=== PATIENT | female | born 1955 | race Caucasian/White ===

== ENCOUNTER → 2017-01-26 | Outpatient (CLI) | payer OTHER ==
[~2017-01-26] MED LIST: ATOR-24 PO; CITA40TA12 PO; CITA40TA4 PO; HYZ/10015 PO; LUTE15CA PO; MULT-1092 PO; NOTE; TYLER650 PO
[2017-01-26 13:13] LABS: ALT/SGPT 29 U/L (12-78); AST/SGOT 18 U/L (15-37); BLOOD UREA NITROGEN 22 mg/dl (7-18); BUN/CREATININE RATIO 20.4 (10-20); CALCIUM 9.2 mg/dl (8.5-10.1); CARBON DIOXIDE 23 mmol/L (21-32); CHLORIDE 110 mmol/L (98-107); GLUCOSE 84 mg/dl (70-99); POTASSIUM 4.3 mmol/L (3.5-5.1); SODIUM 142 mmol/L (136-145)
[2017-01-26 13:17] LABS: ALKALINE PHOSPHATASE 72 U/L (45-117); CHOLESTEROL 252 mg/dl (0-200); CHOLESTEROL/HDL RATIO 3.6; HDL CHOLESTEROL 70 mg/dl; LDL CHOLESTEROL CALCULATED 130 mg/dl; TRIGLYCERIDES 261 mg/dl (0-150); VERY LOW DENSITY LIPOPROT CALC 52 mg/dl
[2017-01-26 13:40] LABS: ESTIMATED AVERAGE GLUCOSE 105 mg/dl; HA1C FLAG Normal (Normal)
[2017-01-29 06:37] LABS: HEPATITIS C RNA TMA QUAL Not detected
== END | disposition home or self-care (01) ==
LOC: C.LABPBG 10:14
PROVIDERS: ATTEND Physician Assistant
DX: Z11.59 Encounter for screening for other viral diseases (principal); I10 Essential (primary) hypertension; E78.5 Hyperlipidemia, unspecified; Z13.1 Encounter for screening for diabetes mellitus

== ENCOUNTER → 2017-09-20 | Day surgery (SDC) | payer OTHER ==
[2017-09-07 11:44] VITALS: Ht 160 cm; Wt 55.0 kg
[~2017-09-20] VITALS: Ht 160 cm; Wt 55.0 kg
[~2017-09-20] MED LIST changes: -CITA40TA12 PO; +LIDOCAINE HCL 2% 2 ML VIAL (20MG/ML) ONE; +MIDAZOLAM HCL 1 MG/ML 2ML VIAL ONE; -NOTE; +ONDANSETRON INJ 2 MG/ML 2 ML VIAL ONE; +PROPOFOL IV EMULSION 10 MG/ML 20 ML VIAL IV ONE
--- NOTE | 2017-09-20 11:35 | Endo History and Physical ---
History & Physical Date of Service: Sep 20, 2017. Chief Complaint: Screening Referring Physician: JJ Rey History of Present Illness 62 yo CF who presents for screening colonoscopy. Past Surgical History Hx Cardiac Surgery: No Hx Internal Defibrillator: No Hx Pacemaker: No Hx Abdominal Surgery: Yes (, KARYN, RT/LEFT OOPHERECTOMY) Hx of Implantable Prosthesis: No Hx Post-Op Nausea and Vomiting: No Hx Cancer Surgery: No Hx Thoracic Surgery: No Hx Orthopedic: No Hx Urinary Tract Surgery: No Family History None Social History Smoking Status: Current Every Day Smoker Hx Substance Use: No Hx Alcohol Use: Yes (RARELY) Allergies Coded Allergies: No Known Allergies (Verified , 09/20/17) Current Medications Reported Home Medications Medications Dose Route/Sig Max Daily Dose Days Date Category Tylenol Arthitis Ext Rel (Acetaminophen) 650 Mg Ertab 2 Tab PO BID 09/07/17 Reported Lutein (Lutein-Zeaxanthin) 1 Cap Cap 1 Cap PO QAM 09/07/17 Reported Centrum Silver 50+Women (Multiple Vitamins W/ Minerals) 1 Tab Tab 1 Tab PO QAM 09/07/17 Reported Lipitor (Atorvastatin Calcium) 40 Mg Tab 40 Mg PO HS 09/07/17 Reported Citalopram Hydrobromide (Citalopram) 40 Mg Tab 1 Tab PO QAM 09/07/17 Reported Hyzaar 25MG/100MG (HCTZ/Losartan Potassium) Tab 1 Tab PO QAM 09/07/17 Reported Vital Signs Weight (Kilograms): 55 Height (Feet): 5 Height (Inches): 3 Date Time Temp Pulse Resp B/P (MAP) Pulse Ox O2 Delivery O2 Flow Rate FiO2 09/20/17 11:23 36.9 97 20 131/58 (82) 94 Room Air Physical Exam General Appearance: WD/WN, no apparent distress Respiratory/Chest: Auscultation: breath sounds normal Cardiovascular: Heart Auscultation: RRR Abdomen: Bowel Sounds: normal Inspection & Palpation: soft, non-distended, no tenderness, guarding & rebound Assessment and Plan Assessment: 62 yo CF who presents for screening colonoscopy. Plan: Proceed with colonoscopy.
--- NOTE | 2017-09-20 12:25 | Discharge Instructions ---
Endoscopy Patient Instructions Date / Procedure(s) Performed Sep 20, 2017. Colonoscopy Allergy Information Coded Allergies: No Known Allergies (Verified , 09/20/17) Discharge Date / Findings Sep 20, 2017. Diverticulosis Internal hemorrhoids Medication Instructions OK to resume all medications today as prescribed Reported Home Medications Medications Dose Route/Sig Max Daily Dose Days Date Category Tylenol Arthitis Ext Rel (Acetaminophen) 650 Mg Ertab 2 Tab PO BID 09/07/17 Reported Lutein (Lutein-Zeaxanthin) 1 Cap Cap 1 Cap PO QAM 09/07/17 Reported Centrum Silver 50+Women (Multiple Vitamins W/ Minerals) 1 Tab Tab 1 Tab PO QAM 09/07/17 Reported Lipitor (Atorvastatin Calcium) 40 Mg Tab 40 Mg PO HS 09/07/17 Reported Citalopram Hydrobromide (Citalopram) 40 Mg Tab 1 Tab PO QAM 09/07/17 Reported Hyzaar 25MG/100MG (HCTZ/Losartan Potassium) Tab 1 Tab PO QAM 09/07/17 Reported Provider Instructions Activity Restrictions - No exercising or heavy lifting for 24 hours. - Do not drink alcohol the day of the procedure. - Do not drive a car or operate machinery until the day after the procedure. - Do not make any important decisions or sign important papers in 24 hours after the procedure. Following Day: - Return to full activity which may include returning to work/school. Diet Start your diet with liquids and light foods (jello, soup, juice, toast). Then eat your usual diet if not nauseated. Treatment For Common After Affects For mild abdominal pain, bloating, or excessive gas: - Rest - Eat lightly - Lie on right side Follow-Up Information Follow-up with JJ Rey as scheduled Anesthesia Information What You Should Know You have had a procedure that required some medicine to reduce anxiety and discomfort. This treatment is called moderate sedation. After receiving the treatment, you may be sleepy, but you will be able to breathe on your own. The effects of the treatment may last for several hours. Follow these instructions along with Activity/Diet recommendations noted above: * Do NOT do anything where dizziness or clumsiness would be dangerous. * Rest quietly at home today, then you can be up and about tomorrow. * Have a responsible person stay with you the rest of today. * You may have had an I.V. today. If so, you may take the dressing off later today. Recommendations Call your doctor if: * Trouble breathing * Continuous vomiting for more than 24 hours * Temperature above 101 degrees * Severe abdominal pain or bloating * Pain not relieved by pain medicine ordered * There is increased drainage or redness from any incision * A large amount of rectal bleeding greater than 2-3 tablespoons. (If you had a polyp/s removed or have hemorrhoids, a small amount of blood - from the rectum is to be expected.) * You have any unanswered questions or concerns. IN THE EVENT OF A SERIOUS EMERGENCY, GO TO THE NEAREST EMERGENCY ROOM Your discharge instructions were prepared by provider Corona Barney. Patient Instructions Signature Page January Doris Patient (or Guardian) Signature/Date: I have read and understand the instructions given to me by my caregivers. Caregiver/RN/Doctor Signature/Date: The above-named patient and/or guardian has received patient instructions on this date. + Original Patient Signature Page (only) stays with chart. Please make copy for patient.
--- NOTE | 2017-09-20 12:28 | GI REPORT ---
Procedure Date: 09/20/2017 11:40 AM Procedure: Colonoscopy Indications: Screening for colorectal malignant neoplasm Medicines: Monitored Anesthesia Care Complications: No immediate complications. Estimated Blood Loss: Estimated blood loss: none. Procedure: Pre-Anesthesia Assessment: - Prior to the procedure, a History and Physical was performed, and patient medications and allergies were reviewed. The patient's tolerance of previous anesthesia was also reviewed. The risks and benefits of the procedure and the sedation options and risks were discussed with the patient. All questions were answered, and informed consent was obtained. Prior Anticoagulants: The patient has taken no previous anticoagulant or antiplatelet agents. ASA Grade Assessment: II - A patient with mild systemic disease. After reviewing the risks and benefits, the patient was deemed in satisfactory condition to undergo the procedure. After I obtained informed consent, the scope was passed under direct vision. Throughout the procedure, the patient's blood pressure, pulse, and oxygen saturations were monitored continuously. The scope was introduced through the anus and advanced to the terminal ileum. The colonoscopy was performed without difficulty. The patient tolerated the procedure well. The quality of the bowel preparation was good. The terminal ileum, ileocecal valve, appendiceal orifice, and rectum were photographed. Findings: The perianal and digital rectal examinations were normal. Multiple small-mouthed diverticula were found in the sigmoid colon. Non-bleeding internal hemorrhoids were found during retroflexion. The hemorrhoids were small. Impression: - Diverticulosis in the sigmoid colon. - Non-bleeding internal hemorrhoids. - No specimens collected. Recommendation: - Resume previous diet. - Continue present medications. - Repeat colonoscopy in 10 years for surveillance. - Return to primary care physician as previously scheduled. Corona Barney DO 09/20/2017 12:28:19 PM This report has been signed electronically. Note Initiated On: 09/20/2017 11:40 AM I attest to the content of the Intraoperative Record and orders documented therein, exceptions below
[2017-09-20 13:01] VITALS: BP 123/68; PULSE 80; O2SAT 100
--- NOTE | 2017-09-20 13:40 | Anesthesiology Progress Note ---
Anesthesia Post Op Note Date & Time Sep 20, 2017 at 13:39 Vital Signs Pain Intensity: 0 Vital Signs Past 12 Hours Date Time Temp Pulse Resp B/P (MAP) Pulse Ox O2 Delivery O2 Flow Rate FiO2 09/20/17 13:01 80 20 123/68 (86) 100 Room Air 09/20/17 12:44 81 20 150/88 (108) 94 Room Air 09/20/17 12:29 84 20 123/74 (90) 94 Room Air 09/20/17 11:23 36.9 97 20 131/58 (82) 94 Room Air Notes Mental Status: alert / awake / arousable, participated in evaluation Pt Amnestic to Procedure: Yes Nausea / Vomiting: adequately controlled Pain: adequately controlled Airway Patency, RR, SpO2: stable & adequate BP & HR: stable & adequate Hydration State: stable & adequate Anesthetic Complications: no major complications apparent
== END | disposition home or self-care (01) ==
LOC: C.GI 10:41
PROVIDERS: ATTEND Internal Medicine
DX: Z12.11 Encounter for screening for malignant neoplasm of colon (principal); I10 Essential (primary) hypertension; K57.30 Diverticulosis of large intestine without perforation or abscess without bleeding; K64.8 Other hemorrhoids; Z90.722 Acquired absence of ovaries, bilateral; F17.200 Nicotine dependence, unspecified, uncomplicated; Z79.899 Other long term (current) drug therapy

== ENCOUNTER 2022-07-17 15:12 | Inpatient (IN) ==
[2022-07-17] MEDS ORDERED: SODIUM CHLORIDE 0.9% 250 ML IV PRN (17:55)
[2022-07-17] MEDS ORDERED: PANTOprazole 40 MG in SYRINGE 0 ML IV ONE (17:55)
[2022-07-17] MEDS ORDERED: FAMOTIDINE 20 MG in SYRINGE 3 ML IV ONE (17:55)
--- NOTE | 2022-07-17 18:00 | Emergency Department Note ---
Impression & Plan UGIB (upper gastrointestinal bleed), RONNI (acute kidney injury), Anemia, SOLORIO (dyspnea on exertion) ED Provider Note NAME: JOSE ALBERTO COFFMAN AGE: 67 SEX: F : 1955 ARRIVES VIA: Walk-In INFORMANT: Patient, ED PROVIDER(S): Ameya Prescott DO CHIEF COMPLAINT: Weakness HPI: The patient is a 67-year-old female who presented to the emergency department for an evaluation of generalized weakness. The patient's been noticing generalized weakness and shortness of breath with exertion for at least the last few weeks. The patient states that she notices no black or bloody bowel moods. She has noticed some diffuse abdominal tenderness. She denies having any fever. She is had no recent trauma. Patient states that she was seen by her family doctor for the symptoms yesterday. At that time she had some laboratory studies drawn. She was called today and told to go to the emergency department because her labs were abnormal. She is not sure exactly what was abnormal with her labs. The patient has not had a transfusion of blood but thinks that her hemoglobin was reportedly low. The patient was told to come the emergency department for blood transfusion. She denies having any swelling in the legs. ROS: See above HPI for pertinent positives & negatives. A total of 10 systems re viewed and were otherwise negative. PAST MEDICAL HISTORY: See Below PAST SURGICAL HISTORY: See Below FAMILY HISTORY: See Below SOCIAL HISTORY: See Below HOME MEDICATIONS: See Below ALLERGIES: See Below VITALS: See Below PHYSICAL EXAMINATION: GENERAL: Patient is awake alert in no acute distress patient is resting comfortably and showing no signs of anxiety EYES: The conjunctivae are pale. The pupils are round and reactive. EARS, NOSE, MOUTH AND THROAT: The nose is without any evidence of any deformity. Mucous membranes are moist. Tongue is midline. NECK: The neck is nontender and supple. RESPIRATORY: Normal respiratory effort is noted there is no evidence of wheezing rhonchi or rales CARDIOVASCULAR: Regular rate and rhythm noted there no murmurs rubs or gallops normal S1 normal S2. GASTROINTESTINAL: Soft and nondistended. There is no tenderness guarding or rigidity. Rectal exam revealed brown stool which was heme positive. MUSCULOSKELETAL/EXTREMITIES: There is no evidence of gross deformity full range of motion is noted in the hips and shoulders. SKIN: There is no obvious evidence of any rash. There are no petechiae, pallor or cyanosis noted. NEUROLOGIC: Patient is awake alert and oriented x3. Gait was steady. MEDICAL DECISION MAKING: The patient is a 67-year-old female who presented to the emergency department for an evaluation of weakness. The patient was seen by her primary care physician and had outpatient laboratory studies obtained. The outpatient laboratory studies appear to be consistent with anemia. The patient was found t o have heme positive stool from below. It was brown stool so I am unsure if this is the cause completely the patient's anemia. She was treated with IV fluids and blood consent was obtained. Blood transfusion was ordered. I discussed the patient's condition with the on-call [facility]. They have agreed to evaluate the patient in the emergency department for further management and disposition. Triage Nursing notes reviewed. Prior medical records reviewed Vital Signs: reviewed and remarkable for elevated blood pressure. Differential diagnosis: Infection, dehydration, metabolic abnormality, hypo/hyperglycemia, electrolyte disturbance, anemia, hypoxia, cardiac sources, intracerebral event, toxicologic, neurologic, as well as other pathologies. ER treatment provided: See below Diagnostics interpreted by me: ECG: Obtained in the emergency department. My interpretation is normal sinus rhythm at 84 bpm. There is no ectopy. There is no acute ST segment abnormalities noted. Cardiac Monitoring: An order was placed for continuous cardiac monitoring. The monitor shows a rate of 85 bpm with sinus rhythm. Laboratory studies: As stated above and show below. Imaging studies: See below Consultation(s): I discussed this case with Dr. Coy who is on-call for the [facility] group. ED COURSE: Procedures: none Critical Care: I have personally spent greater than 55 minutes of critical care time in the direct management of this patient. This includes bedside care, interpretation of diagnostic studies, and testing, discussion with consultants, patient, and family members, and other required patient management activities. This 55 minutes is in excess of all separately billable procedures. Past Med/Surg History Medical History (Updated 07/17/22 @ 19:35 by Katelin Morris PA-C) Acid reflux Acute kidney injury Alcohol use disorder Depression with anxiety Diverticulosis Dyslipidemia Hypertension Internal hemorrhoids Surgical History H/O hysterectomy with oophorectomy S/P ORIF (open reduction internal fixation) fracture R wrist Family History Father Diabetes Myocardial infarction Sister Diabetes Grandmother Breast cancer Grandfather Myocardial infarction Mother Lung cancer Denies family history of Ovarian cancer Prostate cancer Colorectal cancer Social History Smoking Status: Current every day smoker Tobacco Type: Cigarettes packs per day: 0.5; Years Smoked: 15; Second Hand Exposure: Yes (SPOUSE); Hx Alcohol Use: Yes Alcohol type: other Alcohol type Comment: vodka Alcohol Intake Frequency: 4 or More x per/Week Alcohol Intake Frequency Comment: 4-5 drinks Hx Substance Use: No Preferred Language: Cypriot Communication Ability: Effective Visual Impairment: No Limitations Hearing Ability: Normal Redevelopment Specialist Required: No Beliefs That Will Affect Care: None marital status: Current Living Situation: Spouse current occupational status: retired Feels Safe at Home: Yes Childhood Exposure to Second-Hand Smoke: Yes Diet Comment: regular caffeine: Yes (1 red bull daily) during the past year weight has: remained stable Dental Care, Regularly: No Physical Activity Frequency: 1-2 Times per Week Physical Activity Frequency Comment: walking Seatbelt Use: always Sunscreen Use: No Allergies Allergies Allergy/AdvReac Type Severity Reaction Status Date / Time No Known Drug Allergies Allergy Verified 07/17/22 08:04 Home Meds Home Medications Medication Instructions Recorded Confirmed diphenhydramine HCl 25 mg capsule 25 mg PO DAILY PRN allergy symptoms 07/19/19 07/17/22 famotidine 20 mg tablet 20 mg PO DAILY PRN Acid Reflux 07/19/19 07/17/22 lutein 25 mg-zeaxanthin 5 mg 1 cap PO DAILY 07/19/19 07/17/22 capsule erzduxjtxche-utsozmyn-ptmjol tablet 1 tab PO DAILY 07/19/19 07/17/22 nicotine (polacrilex) 4 mg gum 4 mg buccal Q8H PRN Nicotine 07/17/22 07/17/22 (Nicorette) Cravings Previous Rx's Medication Instructions Recorded venlafaxine 75 mg capsule,extended 75 mg PO DAILY #90 caps 09/10/21 release 24 hr valsartan 320 1 tab PO DAILY #90 tabs 02/17/22 mg-hydrochlorothiazide 25 mg tablet atorvastatin 40 mg tablet 40 mg PO DAILY #90 tabs 05/18/22 metoprolol succinate 50 mg 50 mg PO DAILY #90 tabs 06/01/22 tablet,extended release 24 hr albuterol sulfate 90 mcg/actuation 1 inh inhalation QID PRN shortness 07/17/22 aerosol inhaler of breath or wheezing #8.5 grams fluticasone furoate 200 1 inh inhalation DAILY #60 ea 07/17/22 mcg-vilanterol 25 mcg/dose inhalation powder (Breo Ellipta) nicotine See Rx Instructions transdermal 07/17/22 21mg/24hr-14mg/24hr-7mg/24hr daily .COMPLEX #56 patches transderm patches,sequentl Results & Data (ED) Vital Signs Vital Signs - 24 hr 07/17/22 15:26 07/17/22 19:34 07/17/22 19:45 Temperature 36.9 C 36.6 C 36.7 C Temperature Source Temporal Artery Scan Oral Oral Pulse Rate 83 90 91 H Pulse Rate [Apical] Pulse Rhythm Regular Pulse Strength Normal Respiratory Rate 20 17 17 Respiratory Effort / Characteristics Non-Labored Respiratory Depth Normal Respiratory Pattern Blood Pressure 138/57 L 167/71 H 173/85 H Blood Pressure [Left Arm] Blood Pressure Mean 84 103 114 Blood Pressure Mean [Left Arm] Blood Pressure Position Sitting Pulse Oximetry 95 98 Oxygen Delivery Method Room Air Sepsis Recent Fever Within 48 Hours No Sepsis New/Unexplained Change in Mental Status N/A Sepsis Action Taken by Nursing No Action Required 07/17/22 19:52 07/17/22 20:07 07/17/22 20:37 Temperature 36.8 C Temperature Source Oral Pulse Rate 88 88 85 Pulse Rate [Apical] Pulse Rhythm Regular Pulse Strength Normal Respiratory Rate 17 19 22 Respiratory Effort / Characteristics Respiratory Depth Respiratory Pattern Blood Pressure 118/89 170/92 H 167/87 H Blood Pressure [Left Arm] Blood Pressure Mean 98 118 113 Blood Pressure Mean [Left Arm] Blood Pressure Position Sitting Pulse Oximetry 95 96 98 Oxygen Delivery Method Sepsis Recent Fever Within 48 Hours Sepsis New/Unexplained Change in Mental Status Sepsis Action Taken by Nursing 07/17/22 20:39 07/17/22 21:37 Temperature Temperature Source Pulse Rate 85 Pulse Rate [Apical] 87 Pulse Rhythm Pulse Strength Respiratory Rate 20 Respiratory Effort / Characteristics Non-Labored Spontaneous Respiratory Depth Respiratory Pattern Regular Blood Pressure 175/78 H Blood Pressure [Left Arm] 112/65 Blood Pressure Mean 110 Blood Pressure Mean [Left Arm] 80 Blood Pressure Position Lying Pulse Oximetry 93 99 Oxygen Delivery Method Room Air Sepsis Recent Fever Within 48 Hours Sepsis New/Unexplained Change in Mental Status Sepsis Action Taken by [facility] Medications Current Medication List: was personally reviewed by me Laboratory Data Attestation: I reviewed the patient's lab results. Result diagrams: 07/17/22 17:24 07/17/22 17:24 Lab Results 07/17/22 07/17/22 07/17/22 Range/Units 17:24 17:24 17:24 WBC 9.08 (4.8-10.8) K/ul RBC 2.21 L (3.93-5.22) M/uL Hgb 5.8 L* (12.0-16.0) g/dl Hct 19.9 L* (34.1-44.9) % MCV 90.0 (80.0-100.0) fL MCH 26.2 (25.0-34.0) pg MCHC 29.1 L (32.0-36.0) g/dL RDW Std Deviation 52.8 H (36.4-46.3) fL RDW Coeff of Arlet 16.3 H (11.5-14.5) % Plt Count 372 (130-400) K/uL MPV 11.2 (9.4-12.3) fL PT 10.3 (9.0-12.0) Seconds INR 1.0 (0.9-1.1) APTT 22.2 (21.0-31.0) Seconds PTT Ratio 0.8 Sodium (136-145) mmol/L Potassium (3.5-5.1) mmol/L Chloride (98-107) mmol/L Carbon Dioxide (21-32) mmol/L Anion Gap (3-11) BUN (6-23) mg/dl Creatinine (0.6-1.2) mg/dl Est Cr Clr Drug Dosing ml/min Est GFR ( Amer) ml/min Est GFR (Non-Af Amer) ml/min BUN/Creatinine Ratio (10-20) Glucose (70-99(Fasting)) mg/dl Calcium (8.5-10.1) mg/dl Iron (35-150) mcg/dl TIBC (250-450) mcg/dl Unsaturated IBC (155-355) mcg/dl Transferrin % Sat (15-50) % Ferritin (8-388) ng/ml Total Bilirubin (0.2-1.0) mg/dl AST (13-39) U/L ALT (7-52) U/L Alkaline Phosphatase (34-104) U/L Total Protein (6.0-8.3) gm/dl Albumin (3.4-5.0) gm/dl Globulin (2.5-4.0) gm/dl Albumin/Globulin Ratio (0.9-2) SARS-CoV-2, RNA, NAAT (NEGATIVE) Blood Type O Positive Blood Type Recheck Antibody Screen NEGATIVE Crossmatch See Detail 07/17/22 07/17/22 07/17/22 Range/Units 17:24 17:24 18:05 WBC (4.8-10.8) K/ul RBC (3.93-5.22) M/uL Hgb (12.0-16.0) g/dl Hct (34.1-44.9) % MCV (80.0-100.0) fL MCH (25.0-34.0) pg MCHC (32.0-36.0) g/dL RDW Std Deviation (36.4-46.3) fL RDW Coeff of Arlet (11.5-14.5) % Plt Count (130-400) K/uL MPV (9.4-12.3) fL PT (9.0-12.0) Seconds INR (0.9-1.1) APTT (21.0-31.0) Seconds PTT Ratio Sodium 138 (136-145) mmol/L Potassium 4.0 (3.5-5.1) mmol/L Chloride 104 (98-107) mmol/L Carbon Dioxide 25 (21-32) mmol/L Anion Gap 9 (3-11) BUN 42 H (6-23) mg/dl Creatinine 2.45 H (0.6-1.2) mg/dl Est Cr Clr Drug Dosing 17.9 ml/min Est GFR ( Amer) 22.5 ml/min Est GFR (Non-Af Amer) 19.4 ml/min BUN/Creatinine Ratio 17.1 (10-20) Glucose 82 (70-99(Fasting)) mg/dl Calcium 9.7 (8.5-10.1) mg/dl Iron 21 L (35-150) mcg/dl TIBC 469 H (250-450) mcg/dl Unsaturated IBC 448 H (155-355) mcg/dl Transferrin % Sat 4 L (15-50) % Ferritin 6.6 L (8-388) ng/ml Total Bilirubin 0.4 (0.2-1.0) mg/dl AST 20 (13-39) U/L ALT 15 (7-52) U/L Alkaline Phosphatase 57 (34-104) U/L Total Protein 7.4 (6.0-8.3) gm/dl Albumin 4.2 (3.4-5.0) gm/dl Globulin 3.2 (2.5-4.0) gm/dl Albumin/Globulin Ratio 1.3 (0.9-2) SARS-CoV-2, RNA, NAAT NEGATIVE (NEGATIVE) Blood Type Blood Type Recheck Antibody Screen Crossmatch 07/17/22 Range/Units 18:07 WBC (4.8-10.8) K/ul RBC (3.93-5.22) M/uL Hgb (12.0-16.0) g/dl Hct (34.1-44.9) % MCV (80.0-100.0) fL MCH (25.0-34.0) pg MCHC (32.0-36.0) g/dL RDW Std Deviation (36.4-46.3) fL RDW Coeff of Arlet (11.5-14.5) % Plt Count (130-400) K/uL MPV (9.4-12.3) fL PT (9.0-12.0) Seconds INR (0.9-1.1) APTT (21.0-31.0) Seconds PTT Ratio Sodium (136-145) mmol/L Potassium (3.5-5.1) mmol/L Chloride (98-107) mmol/L Carbon Dioxide (21-32) mmol/L Anion Gap (3-11) BUN (6-23) mg/dl Creatinine (0.6-1.2) mg/dl Est Cr Clr Drug Dosing ml/min Est GFR ( Amer) ml/min Est GFR (Non-Af Amer) ml/min BUN/Creatinine Ratio (10-20) Glucose (70-99(Fasting)) mg/dl Calcium (8.5-10.1) mg/dl Iron (35-150) mcg/dl TIBC (250-450) mcg/dl Unsaturated IBC (155-355) mcg/dl Transferrin % Sat (15-50) % Ferritin (8-388) ng/ml Total Bilirubin (0.2-1.0) mg/dl AST (13-39) U/L ALT (7-52) U/L Alkaline Phosphatase (34-104) U/L Total Protein (6.0-8.3) gm/dl Albumin (3.4-5.0) gm/dl Globulin (2.5-4.0) gm/dl Albumin/Globulin Ratio (0.9-2) SARS-CoV-2, RNA, NAAT (NEGATIVE) Blood Type Blood Type Recheck O Positive Antibody Screen Crossmatch Administered Medications Sodium Chloride (Nss) 250 mls @ 15 mls/hr IV .[id number] PRN PRN Reason: For Transfusion Stop: 07/18/22 03:55 Last Admin: 07/17/22 19:30 Dose: 15 mls/hr Documented By: MED Discontinued Medications Pantoprazole Sodium 40 mg/ (Syringe) 10 mls @ 5 mls/min IV NOW ONE Stop: 07/17/22 17:56 Last Admin: 07/17/22 18:44 Dose: 5 mls/min Documented By: TIARA Famotidine 20 mg/ Syringe 5 mls @ 2.5 mls/min IV NOW ONE Stop: 07/17/22 17:56 Last Admin: 07/17/22 18:43 Dose: 2.5 mls/min Documented By: TIARA Sodium Chloride (Nss 1000ml) 1,000 mls @ 999 mls/hr IV .[id number] ONE Stop: 07/17/22 19:01 Last Admin: 07/17/22 18:14 Dose: 999 mls/hr Documented By: TIARA Imaging Data Radiologist's Impression: Chest X-Ray 07/17/22 17:55 XR chest 1V portable CLINICAL HISTORY: SOB TECHNIQUE: Single frontal radiograph of the chest was obtained. Comparison: Comparison is made to low-dose CT chest 08/18/2021 FINDINGS: No lines and tubes are seen. Calcified aortic knob is seen. The lungs are clear. No evidence of pleural effusion or pneumothorax. IMPRESSION: No acute abnormalities and in particular no evidence of pneumonia. ACT 112: Negative or not required by law. Electronically signed by: Jayson Ingram M.D. 07/17/2022 6:14 PM Discharge Plan Visit Data Chief Complaint: Abnormal Labs/Diagnostic Testing Stated Complaint: BLOOD TRANSFUSION ED Provider: Ameya Prescott Discharge Problem: UGIB (upper gastrointestinal bleed), RONNI (acute kidney injury), Anemia, SOLORIO (dyspnea on exertion) Patient Disposition: Being Evaluated by Hospitalist Forms Stand Alone Forms: My [facility] [employer] Prescriptions Prescriptions: No Action venlafaxine 75 mg capsule,extended release 24hr 75 mg PO DAILY Qty: 90 3RF Rx Instructions: rx changed dose valsartan-hydrochlorothiazide 320-25 mg tablet 1 tab PO DAILY Qty: 90 1RF atorvastatin 40 mg tablet 40 mg PO DAILY Qty: 90 2RF metoprolol succinate 50 mg tablet extended release 24 hr 50 mg PO DAILY Qty: 90 1RF nicotine (polacrilex) [Nicorette] 4 mg gum 4 mg buccal Q8H PRN (Reason: Nicotine Cravings) albuterol sulfate 90 mcg/actuation HFA aerosol inhaler 1 inh inhalation QID PRN (Reason: shortness of breath or wheezing) Qty: 8.5 0RF fluticasone furoate-vilanterol [Breo Ellipta] 200-25 mcg/dose blister with device 1 inh inhalation DAILY Qty: 60 2RF nicotine 21-14-7 mg/24 hr patch, TD daily, sequential See Rx Instructions transdermal .COMPLEX Qty: 56 0RF Rx Instructions: apply 1-21 mg NICOTINE PATCH daily for 28 days; follow with 1-14 mg PATCH daily for 14 days, then 1-7mg PATCH daily for 14 days transdermal lutein-zeaxanthin 25-5 mg capsule 1 cap PO DAILY diphenhydramine HCl 25 mg capsule 25 mg PO DAILY PRN (Reason: allergy symptoms) famotidine 20 mg tablet 20 mg PO DAILY PRN (Reason: Acid Reflux) vvfyjuxjtpse-zsrpedfl-wxhlqd tablet 1 tab PO DAILY Referrals Referrals: Sandy Shea DO [Primary Care Provider] -
[2022-07-17] MEDS ORDERED: SODIUM CHLORIDE 0.9% 1000ML 1,000 ML IV ONE (18:01)
[2022-07-17 18:11] LABS: Albumin Globulin Ratio 1.3 (0.9-2); Albumin Level 4.2 gm/dl (3.4-5.0); BUN Creatinine Ratio 17.1 (10-20); Bilirubin,Total 0.4 mg/dl (0.2-1.0); Calcium 9.7 mg/dl (8.5-10.1); Creatinine Clr Calc Pharmacy 17.9 ml/min; Est GFR (African American) 22.5 ml/min; Est GFR (Non-African American) 19.4 ml/min; Globulin 3.2 gm/dl (2.5-4.0); Total Protein 7.4 gm/dl (6.0-8.3)
--- NOTE | 2022-07-17 18:11 | History & Physical Report ---
Date of Service July 17, 2022 Assessment & Plan (1) UGIB (upper gastrointestinal bleed): Plan: - Suspected given daily alcohol use and near daily Advil for arthritis. FOB + in ED. - Vitals are wnl and stable. - Hgb 6.3 today on outpt labs, 5.8 here. BUN 42, doubled from prior labs. Comparison labs are from 2019 and Hgb was 12 then. - Patient has been SOB and fatigued for one month but not with any concerning s/s of an acute GI bleed, so I suspect this has been going on for sometime and not likely acute over the past few days. She has not had any labs done in years that I can see, so it is impossible to know her recent baseline. - 2 units ordered for transfusion tonight. Recheck H/H on AM labs or sooner if there is concern for acute blood loss. - Iron panel, B12, folate added on to labs draw prior to transfusion. - NPO. GI consulted to see patient. Appreciate their recommendations and assistance with this patient. (2) RONNI (acute kidney injury): Plan: - Cr 2.45 today. Cr was 1.2 two years ago. - Likely 2/2 chronic NSAID use. - Resuscitate with IVF; received 1 L NS bolus in ED. - Continue with banana bag and LRs 100 cc/hr overnight. - Renally dose meds as able and avoid nephrotoxins. (3) Anemia: Plan: - Likely multifactorial. Most concerning is a slow, steady UGI bleed but also may have an element of anemia of chronic disease due to CKD. - Acute management as above. - Further interventions pending GI consult, iron panel results, B12, folate levels etc. (4) SOLORIO (dyspnea on exertion): Plan: - Again, likely multifactorial and acutely due to anemia, but she has smoked for the past 15 ears and may have an element of COPD. - CXR evidence without pneumonia, HF, or mass. - Does not appear volume overloaded, no hx of HF. - Continue home inhalers. (5) Tobacco use disorder: Plan: - Now using nicotine patches to quit. (6) Alcohol use disorder: Plan: - Drinks 5 vodka/water drinks daily for many years but has never voluntarily or involuntarily stopped. No reports of withdrawal. - She has been to rehab and is adamant that she will not go back but does very much wish to cut back on her drinking. - On AWSS precautions--at risk protocol. Last drink today. No withdrawal symptoms at present. - Banana bag. Thiamine and folate repletion. - B12 and folate added on to ED labs. (7) Hypertension: Plan: - Continue valsartan/HCTZ and metoprolol. (8) Acid reflux: Plan: - IV PPI BID and famotidine added on given suspected UGI bleed. (9) Dyslipidemia: Plan: - Continue statin. Plan - Admit to PCU. - SCDs for VTE ppx, chemoppx C/I d/t suspected GI bleed. - Full Code. History of Present Illness Primary Care Provider: Sandy Shea DO January Doris is a 67-year-old female with a past medical history significant for internal hemorrhoids, alcohol use disorder, hypertension, GERD, dyslipidemia, CKD, and tobacco use of is presenting today at the referral of her PCP for abnormal labs. Shemet with her PCP today to discuss progressively worsening shortness of breath and fatigue over the past several weeks. Basic labs were drawn to begin the workup, and she received a call to go to the ED for her hemoglobin came back at 6.3. Did not notice any dark, tarry stools or bright red blood per rectum but has just been more more short of breath and overall fatigue for the past month and was concerned she may have COPD, she has been smoking about a pack a day for the last 15 years. She has occasional abdominal pain she believed was indigestion. It was never sharp or stabbing or in her epigastric region. She has not been nauseous or been vomiting. She does take a PPI as needed for her reflux disease but does not feel she has been relying on this more than usual. She has lost 7 pounds unintentionally over the past year, no night sweats. Unsure if she is ever had a colonoscopy. She does admit to drinking 5 vodka water drinks daily for many years and also takes NSAIDs somewhat frequently for arthritis. Upon arrival to the ED, vital signs have been within normal limits and stable. Her hemoglobin here is 5.8, iron studies added on and pending. Her BUN is doubled from what it was several years ago at 42, creatinine elevated at 2.45, baseline medical to estimate but creatinine was 1.2 two years ago. LFTs are within normal limits. She is COVID-negative. Chest x-ray was obtained and this did not show any acute abnormalities. Allergies Allergy/AdvReac Type Severity Reaction Status Date / Time No Known Drug Allergies Allergy Verified 07/17/22 08:04 Home Medications Medication Instructions Recorded Confirmed Type diphenhydramine HCl 25 mg capsule 25 mg PO DAILY PRN allergy symptoms 07/19/19 07/17/22 History famotidine 20 mg tablet 20 mg PO DAILY PRN Acid Reflux 07/19/19 07/17/22 History lutein 25 mg-zeaxanthin 5 mg 1 cap PO DAILY 07/19/19 07/17/22 History capsule ledzlhqpyasz-cdytheww-kmkwpm tablet 1 tab PO DAILY 07/19/19 07/17/22 History venlafaxine 75 mg capsule,extended 75 mg PO DAILY #90 caps 09/10/21 07/17/22 Rx release 24 hr valsartan 320 1 tab PO DAILY #90 tabs 02/17/22 07/17/22 Rx mg-hydrochlorothiazide 25 mg tablet atorvastatin 40 mg tablet 40 mg PO DAILY #90 tabs 05/18/22 07/17/22 Rx metoprolol succinate 50 mg 50 mg PO DAILY #90 tabs 06/01/22 07/17/22 Rx tablet,extended release 24 hr albuterol sulfate 90 mcg/actuation 1 inh inhalation QID PRN shortness 07/17/22 07/17/22 Rx aerosol inhaler of breath or wheezing #8.5 grams fluticasone furoate 200 1 inh inhalation DAILY #60 ea 07/17/22 07/17/22 Rx mcg-vilanterol 25 mcg/dose inhalation powder (Breo Ellipta) nicotine (polacrilex) 4 mg gum 4 mg buccal Q8H PRN Nicotine 07/17/22 07/17/22 History (Nicorette) Cravings nicotine See Rx Instructions transdermal 07/17/22 07/17/22 Rx 21mg/24hr-14mg/24hr-7mg/24hr daily .COMPLEX #56 patches transderm patches,sequentl folic acid 1 mg tablet 1 mg PO QAM #30 tabs 07/18/22 Rx pantoprazole 40 mg tablet,delayed 40 mg PO BID #60 tabs 07/18/22 Rx release thiamine HCl (vitamin B1) 100 mg 100 mg PO QAM #30 tabs 07/18/22 Rx tablet Past Med/Surg History Medical History (Updated 07/17/22 @ 19:35 by Katelin Morris PA-C) Acid reflux Acute kidney injury Alcohol use disorder Depression with anxiety Diverticulosis Dyslipidemia Hypertension Internal hemorrhoids Surgical History H/O hysterectomy with oophorectomy S/P ORIF (open reduction internal fixation) fracture R wrist Family History Father Diabetes Myocardial infarction Sister Diabetes Grandmother Breast cancer Grandfather Myocardial infarction Mother Lung cancer Denies family history of Ovarian cancer Prostate cancer Colorectal cancer Social History Smoking Status: Former smoker Tobacco Type: Cigarettes packs per day: 0.5; Years Smoked: 15; Cigarettes Per Day: 5-6; Second Hand Exposure: Yes (SPOUSE); Hx Alcohol Use: Yes Alcohol type: hard liquor Alcohol type Comment: vodka Alcohol Intake Frequency: 4 or More x per/Week Alcohol Intake Frequency Comment: 4-5 drinks Hx Substance Use: No Preferred Language: Nigerian Communication Ability: Effective Visual Impairment: No Limitations Hearing Ability: Normal Staff Research Scientist Required: No Beliefs That Will Affect Care: None marital status: Current Living Situation: Spouse current occupational status: retired Other Information That Helps Us Care for You: No Feels Safe at Home: Yes Safety Concerns: Feels Safe At This Time Childhood Exposure to Second-Hand Smoke: Yes Diet Comment: regular caffeine: Yes (1 red bull daily) during the past year weight has: remained stable Dental Care, Regularly: No Physical Activity Frequency: 1-2 Times per Week Physical Activity Frequency Comment: walking Seatbelt Use: always Sunscreen Use: No Assistive Devices: Contacts, Denture - Upper, Denture - Lower and Glasses Review of Systems Review of Systems: Constitutional: ongoing general fatigue for a month or so; No fever/chills, weakness, myalgias, anorexia, night sweats Eyes: No diplopia, no worsening or blurred vision ENT: normal hearing, no trouble swallowing Respiratory: ongoing SOB for one month or so and a chronic dry cough; No sputum production Cardiovascular: No chest pain, tightness or palpitations Abdomen: No pain, nausea, vomiting, diarrhea or constipation : Denies dysuria, hematuria, increased urgency/frequency, urinary retention Musculoskeletal: No joint pain, calf pain, swelling Neurologic: No weakness, numbness/tingling, or balance problems Psychiatric: No anxiety or depression Skin: No rash or itch Physical Exam Physical Exam: General: awake, alert, no apparent distress Head: Normocephalic, atraumatic ENT: PERRL, EOMI, no pharyngeal exudate, mucous membranes moist Chest: Clear to auscultation, on room air, no adventitious breath sounds Cardiac: Regular rate and rhythm, no murmur, no JVD, normal peripheral pulses, good capillary refill Abdominal: NABS x 4 quadrants, soft, nontender to palpation, no rebound, guarding or tenderness Extremities: Normal inspection, no peripheral edema or erythema, calfs nontender to palpation Psych: Normal mood and affect Neuro: AAO x 3, strength intact bilaterally and rated 5/5, no motor deficits, speech is clear, no peripheral sensory deficits Skin: no rash or erythema Results & Data Results & Data ([facility]) Vital Signs (Past 12 Hours) Vital Signs Temp Pulse Resp BP Pulse Ox O2 Del Method 07/17/22 15:26 36.9 C 83 20 138/57 L 95 Room Air Laboratory Results Abnormal lab results 07/17/22 07/17/22 07/17/22 Range/Units 17:24 17:24 17:24 RBC 2.21 L (3.93-5.22) M/uL Hgb 5.8 L* (12.0-16.0) g/dl Hct 19.9 L* (34.1-44.9) % MCHC 29.1 L (32.0-36.0) g/dL RDW Std Deviation 52.8 H (36.4-46.3) fL RDW Coeff of Arlet 16.3 H (11.5-14.5) % BUN 42 H (6-23) mg/dl Creatinine 2.45 H (0.6-1.2) mg/dl Crossmatch See Detail Diagnostic Findings Chest X-Ray 07/17/22 17:55 XR chest 1V portable CLINICAL HISTORY: SOB TECHNIQUE: Single frontal radiograph of the chest was obtained. Comparison: Comparison is made to low-dose CT chest 08/18/2021 FINDINGS: No lines and tubes are seen. Calcified aortic knob is seen. The lungs are clear. No evidence of pleural effusion or pneumothorax. IMPRESSION: No acute abnormalities and in particular no evidence of pneumonia. ACT 112: Negative or not required by law. Electronically signed by: Jayson Ingram M.D. 07/17/2022 6:14 PM ECG Additional Comments: Normal sinus rhythm Normal ECG When compared with ECG of 05-DEC-2018 12:25, T wave inversion now evident in Anterior leads. Code Status & VTE Plan Code Status Full Code. Supervising Physician Co-Signing Physician Notes I personally saw and examined the patient. I verified all garcia points and agree with Katelin Morris PA-C with the following exceptions and/or additions: 67 year old female admission for abnormal labs with hemoglobin 6.3 from previously 12.0 3 years previously and creatinine 2.56 from 1.24 two years ago. Reports feeling more fatigued and short of breath over the last month. O/E HS1+2, no murmurs, Chest CTAB, Abdo SNT A/P Acute blood loss anemia, acute GI bleed, iron def. anemia - Given lack of symptoms and slow onset suspect bleed is slow. IV pantoprazole 40mg IV BID. transfuse 2 units of blood. Aim Hgb > 7. NPO after midnight. Consult gastroenterology PG Care Time/CCT Total # of Minutes Spent Total Time Spent with Patient: Total time spent is greater than 50% in coordination of care (as documented) at patient's floor/unit and/or counseling patient: Coding Level of Care Code 69433 Initial Inpt Care Lvl 3 Diagnoses UGIB (upper gastrointestinal bleed) K92.2 RONNI (acute kidney injury) N17.9 Anemia D64.9 Anemia type: unspecified type SOLORIO (dyspnea on exertion) R06.09 Tobacco use disorder F17.200 Alcohol use disorder Hypertension I10 Acid reflux K21.9 Dyslipidemia E78.5 (1) Anemia Anemia type: unspecified type Qualified Code(s): D64.9 - Anemia, unspecified
[2022-07-17 18:13] LABS: Partial Thromboplastin Ratio 0.8; Partial Thromboplastin Time 22.2 Seconds (21.0-31.0); Prothrombin Time 10.3 Seconds (9.0-12.0)
--- NOTE | 2022-07-17 18:16 | XRay Report ---
XR chest 1V portable CLINICAL HISTORY: SOB TECHNIQUE: Single frontal radiograph of the chest was obtained. Comparison: Comparison is made to low-dose CT chest 08/18/2021 FINDINGS: No lines and tubes are seen. Calcified aortic knob is seen. The lungs are clear. No evidence of pleur al effusion or pneumothorax. IMPRESSION: No acute abnormalities and in particular no evidence of pneumonia. ACT 112: Negative or not required by law. Electronically signed by: Jayson Ingram M.D. 07/17/2022 6:14 PM
[2022-07-17 18:32] LABS: Hematocrit (blood only) 19.9 % (34.1-44.9); Hemoglobin 5.8 g/dl (12.0-16.0); Mean Corpuscular Hemoglobin 26.2 pg (25.0-34.0); Mean Corpuscular Hgb Conc 29.1 g/dL (32.0-36.0); Mean Platelet Volume 11.2 fL (9.4-12.3); Platelet Count 372 K/uL (130-400); RDW Coefficient of Variation 16.3 % (11.5-14.5); RDW Standard Deviation 52.8 fL (36.4-46.3); Red Blood Count 2.21 M/uL (3.93-5.22); White Blood Count 9.08 K/ul (4.8-10.8)
[2022-07-17 19:52] LABS: Ferritin 6.6 ng/ml (8-388)
[2022-07-17] MEDS ORDERED: POLYETHYLENE (MIRALAX) 17 GM PACK PO PRN (22:05)
[2022-07-17] MEDS ORDERED: ONDANSETRON INJ 2 MG/ML 2 ML VIAL IV PRN (22:05)
[2022-07-17] MEDS ORDERED: LORazepam 1 MG in SYRINGE 0.5 ML IV PRN (22:05)
[2022-07-17] MEDS ORDERED: ALBUTEROL HFA 8 GM INHALER INH PRN (22:05)
[2022-07-17] MEDS ORDERED: [UNRECOGNIZED DRUG - OTHER] TD SCH (22:05)
[2022-07-17] MEDS ORDERED: NICOTINE TD SCH (22:05)
[2022-07-17] MEDS ORDERED: ACETAMINOPHEN 325 MG TAB PO PRN (22:05)
[2022-07-17] MEDS ORDERED: PNEUMOCOCCAL POLYSACCHARIDES 25 MCG/0.5 ML VIAL/SYR IM ONE (22:22)
[2022-07-17] MEDS ORDERED: MULTI-VITAMIN INFUSION 10 ML, THIAMINE HCL 100 MG, FOLIC ACID 1 MG in SODIUM CHLORIDE 0... IV ONE (22:30)
--- NOTE | 2022-07-17 22:44 | Communication Note ---
Date of Service: July 17, 2022 Notified of bp 180/77, AWSS of 2 and patient feeling anxious. Not ordering any spot doses of Ativan for now. Continue AWSS protocol. Patient has the at-risk protocol ordered. Given etoh usage hx (5 drinks of vodka daily), would consider low threshold for transition to AWSS active protocol. Strict NPO while awaiting GI consult for UGIB workup.
[2022-07-17] MEDS ORDERED: MELATONIN 3 MG TAB PO PRN (22:45)
[2022-07-17] MEDS: FOLIC ACID 1 MG TAB PO SCH (23:34)
[2022-07-17] MEDS: THIAMINE HCL 100 MG TAB PO SCH (23:34)
[2022-07-17] MEDS: PANTOprazole 40 MG in SYRINGE 0 ML IV SCH (23:44)
[2022-07-18] MEDS: LACTATED RINGER'S 1,000 ML IV SCH ×2 (01:33→11:08)
[2022-07-18 06:36] LABS: Hematocrit (blood only) 24.9 % (34.1-44.9); Mean Corpuscular Hemoglobin 27.7 pg (25.0-34.0); Mean Corpuscular Hgb Conc 32.1 g/dL (32.0-36.0); Mean Corpuscular Volume 86.2 fL (80.0-100.0); Platelet Count 281 K/uL (130-400); RDW Standard Deviation 47.1 fL (36.4-46.3); Red Blood Count 2.89 M/uL (3.93-5.22); White Blood Count 7.13 K/ul (4.8-10.8)
[2022-07-18 07:14] LABS: Albumin Globulin Ratio 1.3 (0.9-2); Albumin Level 3.5 gm/dl (3.4-5.0); BUN Creatinine Ratio 17.5 (10-20); Bilirubin,Total 0.5 mg/dl (0.2-1.0); Calcium 8.3 mg/dl (8.5-10.1); Creatinine Clr Calc Pharmacy 23.7 ml/min; Est GFR (African American) 32.1 ml/min; Est GFR (Non-African American) 27.7 ml/min; Globulin 2.6 gm/dl (2.5-4.0); Magnesium 1.5 mg/dl (1.7-2.4); Potassium 3.7 mmol/L (3.5-5.1); Total Protein 6.1 gm/dl (6.0-8.3)
[2022-07-18 07:21] LABS: Basophils # (auto) 0.05 K/uL (0-0.2); Basophils % (auto) 0.7 %; Eosinophils % (auto) 5.6 %; Folate (Folic Acid) > 22.30 ng/ml (>5.38); Immature Granulocytes # (auto) 0.02 K/uL (0.00-0.02); Immature Granulocytes % (auto) 0.3 %; Lymphocytes # (auto) 1.38 K/uL (1.2-3.4); Lymphocytes % (auto) 19.4 %; Monocytes # (auto) 0.67 K/uL (0.24-0.82); Monocytes % (auto) 9.4 %; Neutrophils # (auto) 4.61 K/uL (1.4-6.5); Neutrophils % (auto) 64.6 %
[2022-07-18 07:22] LABS: Vitamin B12 667 pg/ml (180-914)
[2022-07-18] MEDS: PANTOprazole 40 MG in SYRINGE 0 ML IV SCH (08:28)
[2022-07-18] MEDS ORDERED: hydroCHLOROthiazide 25 MG TAB PO SCH (09:00)
[2022-07-18] MEDS ORDERED: NICOTINE 14 MG/24 HR PATCH TD SCH (09:00)
[2022-07-18] MEDS ORDERED: CEROVITE ADV FORMULA TAB PO SCH (09:00)
[2022-07-18] MEDS ORDERED: FAMOTIDINE 20 MG in SYRINGE 3 ML IV SCH (09:00)
[2022-07-18] MEDS ORDERED: METOPROLOL SUCC 50MG EXT REL TAB PO SCH (09:00)
[2022-07-18] MEDS ORDERED: VENLAFAXINE HCL XR 75 MG CAPXR PO SCH (09:00)
[2022-07-18] MEDS ORDERED: FLUTICASONE/VILANTEROL 200/25MCG 14 PUFFS/INHALER INH SCH (09:00)
[2022-07-18] MEDS ORDERED: ATORVASTATIN 40 MG TAB PO SCH (09:00)
[2022-07-18] MEDS ORDERED: VALSARTAN 80 MG TAB PO SCH (09:00)
[2022-07-18 12:30] LABS: Hematocrit (blood only) 28.9 % (34.1-44.9); Hemoglobin 9.3 g/dl (12.0-16.0)
--- NOTE | 2022-07-18 13:05 | Electrocardiogram Report ---
Test Reason : Blood Pressure : / mmHG Vent. Rate : 084 BPM Atrial Rate : 084 BPM P-R Int : 130 ms QRS Dur : 082 ms QT Int : 374 ms P-R-T Axes : 063 042 054 degrees QTc Int : 441 ms Poor data quality, interpretation may be adversely affected Normal sinus rhythm Normal ECG When compared with ECG of 05-DEC-2018 12:25, T wave inversion now evident in Anterior leads Confirmed by Kye Vences ([id number]) on 07/18/2022 1:04:46 PM Referred By: Sandy Shea Confirmed By:Kd Vences
[2022-07-18] MEDS: FOLIC ACID 1 MG TAB PO SCH (13:59)
[2022-07-18] MEDS: THIAMINE HCL 100 MG TAB PO SCH (13:59)
--- NOTE | 2022-07-18 15:02 | Discharge Summary ---
Date of Service July 18, 2022 Admission HPI Per Admitting Provider January Doris is a 67-year-old female with a past medical history significant for internal hemorrhoids, alcohol use disorder, hypertension, GERD, dyslipidemia, CKD, and tobacco use of is presenting today at the referral of her PCP for abnormal labs. Shemet with her PCP today to discuss progressively worsening shortness of breath and fatigue over the past several weeks. Basic labs were drawn to begin the workup, and she received a call to go to the ED for her hemoglobin came back at 6.3. Did not notice any dark, tarry stools or bright red blood per rectum but has just been more more short of breath and overall fatigue for the past month and was concerned she may have COPD, she has been smoking about a pack a day for the last 15 years. She has occasional abdominal pain she believed was indigestion. It was never sharp or stabbing or in her epigastric region. She has not been nauseous or been vomiting. She does take a PPI as needed for her reflux disease but does not feel she has been relying on this more than usual. She has lost 7 pounds unintentionally over the past year, no night sweats. Unsure if she is ever had a colonoscopy. She does admit to drinking 5 vodka water drinks daily for many years and also takes NSAIDs somewhat frequently for arthritis. Upon arrival to the ED, vital signs have been within normal limits and stable. Her hemoglobin here is 5.8, iron studies added on and pending. Her BUN is doubled from what it was several years ago at 42, creatinine elevated at 2.45, baseline medical to estimate but creatinine was 1.2 two years ago. LFTs are within normal limits. She is COVID-negative. Chest x-ray was obtained and this did not show any acute abnormalities. Discharge Data Allergies Allergy/AdvReac Type Severity Reaction Status Date / Time No Known Drug Allergies Allergy Verified 07/17/22 08:04 Consultations 07/17/22 18:15 ED Decision to Admit Stat 07/17/22 22:05 Consult Gastroenterology Routine Hospital Course (1) UGIB (upper gastrointestinal bleed): - Suspected given daily alcohol use and near daily Advil for arthritis. FOB + in ED. - Vitals are wnl and stable. - Hgb 6.3 today on outpt labs, 5.8 here. BUN 42, doubled from prior labs. Comparison labs are from 2019 and Hgb was 12 then. - Patient has been SOB and fatigued for one month but not with any concerning s/s of an acute GI bleed, so I suspect this has been going on for sometime and not likely acute over the past few days. She has not had any labs done in years that I can see, so it is impossible to know her recent baseline. - 2 units ordered for transfusion tonight. Recheck H/H on AM labs or sooner if there is concern for acute blood loss. - Iron panel, B12, folate added on to labs draw prior to transfusion. - NPO. GI consulted to see patient. Appreciate their recommendations and assistance with this patient. (2) RONNI (acute kidney injury): - Cr 2.45 today. Cr was 1.2 two years ago. - Likely 2/2 chronic NSAID use. - Resuscitate with IVF; received 1 L NS bolus in ED. - Continue with banana bag and LRs 100 cc/hr overnight. - Renally dose meds as able and avoid nephrotoxins. (3) Anemia: - Likely multifactorial. Most concerning is a slow, steady UGI bleed but also may have an element of anemia of chronic disease due to CKD. - Acute management as above. - Further interventions pending GI consult, iron panel results, B12, folate levels etc. (4) SOLORIO (dyspnea on exertion): - Again, likely multifactorial and acutely due to anemia, but she has smoked for the past 15 ears and may have an element of COPD. - CXR evidence without pneumonia, HF, or mass. - Does not appear volume overloaded, no hx of HF. - Continue home inhalers. (5) Tobacco use disorder: - Now using nicotine patches to quit. (6) Alcohol use disorder: - Drinks 5 vodka/water drinks daily for many years but has never voluntarily or involuntarily stopped. No reports of withdrawal. - She has been to rehab and is adamant that she will not go back but does very much wish to cut back on her drinking. - On AWSS precautions--at risk protocol. Last drink today. No withdrawal symptoms at present. - Banana bag. Thiamine and folate repletion. - B12 and folate added on to ED labs. (7) Hypertension: - Continue valsartan/HCTZ and metoprolol. (8) Acid reflux: - IV PPI BID and famotidine added on given suspected UGI bleed. (9) Dyslipidemia: - Continue statin. Plan - Admit to PCU. - SCDs for VTE ppx, chemoppx C/I d/t suspected GI bleed. - Full Code. Discharge Plan Discharge Items Patient Disposition: Home - Self-Care Reason For Visit: ANEMIA, SUSPECT GI BLEED Discharge Diagnosis: Iron deficiency anemia Suspected acute gastrointestinal bleed Activity: Resume your previous activity Non-emergency contact: Primary Care Provider Call non-emergency contact if: you have any medication questions and your symptoms worsen Follow-up/Referrals: Sandy Shea DO [Primary Care Provider] - Mendel Barnhart MD [Physician] - (Hospital follow up next available appointment) Diet: Regular Ambulatory Orders: Basic Metabolic Panel (Routine) Timeframe: 20220720 Location: Determined by Patient Ordered By: Baldo Coy Complete Blood Count with Diff (Routine) Timeframe: [id number] Location: Determined by Patient Ordered By: Baldo Coy [facility] Attending Provider Instructions: You were admitted to [facility] from July 17 - July 18, 2022 due to fatigue and anemia. You were diagnosed with suspected acute gastrointestinal bleed and acute kidney failure. You were treated with intravenous pantoprazole and transfused 2 units of blood. Inpatient endoscopy was discussed but you declined to stay for this to be done on Wednesday. Please continue on pantoprazole 40mg twice day until follow up with gastroenterology (Dr Barnhart) for ongoing workup. Please follow up with your primary care provider with repeat labs tests on Wednesday to check you kidney function and anemia. Please follow up with your primary care provider to help with alcohol consumption. Medications to consider helping to stop include naltrexone, acamprosate and disulfiram - please discuss these further with your primary care provider to discuss if they are right for you. Due to your alcohol consumption recommend daily supplementation with folate and thiamine as prescribed as these are commonly low in patients who drink excessive alcohol. Pending Studies at Discharge: No Stand-Alone Forms: My [facility], Smoking Cessation Medications and DC Order Prescriptions: New thiamine HCl (vitamin B1) 100 mg Tablet 100 mg PO QAM Qty: 30 0RF folic acid 1 mg Tablet 1 mg PO QAM Qty: 30 0RF pantoprazole 40 mg tablet,delayed release (DR/EC) 40 mg PO BID Qty: 60 0RF Continued venlafaxine 75 mg capsule,extended release 24hr 75 mg PO DAILY Qty: 90 3RF Rx Instructions: rx changed dose valsartan-hydrochlorothiazide 320-25 mg tablet 1 tab PO DAILY Qty: 90 1RF atorvastatin 40 mg tablet 40 mg PO DAILY Qty: 90 2RF metoprolol succinate 50 mg tablet extended release 24 hr 50 mg PO DAILY Qty: 90 1RF nicotine (polacrilex) [Nicorette] 4 mg gum 4 mg buccal Q8H PRN (Reason: Nicotine Cravings) albuterol sulfate 90 mcg/actuation HFA aerosol inhaler 1 inh inhalation QID PRN (Reason: shortness of breath or wheezing) Qty: 8.5 0RF fluticasone furoate-vilanterol [Breo Ellipta] 200-25 mcg/dose blister with device 1 inh inhalation DAILY Qty: 60 2RF nicotine 21-14-7 mg/24 hr patch, TD daily, sequential See Rx Instructions transdermal .COMPLEX Qty: 56 0RF Rx Instructions: apply 1-21 mg NICOTINE PATCH daily for 28 days; follow with 1-14 mg PATCH daily for 14 days, then 1-7mg PATCH daily for 14 days transdermal lutein-zeaxanthin 25-5 mg capsule 1 cap PO DAILY diphenhydramine HCl 25 mg capsule 25 mg PO DAILY PRN (Reason: allergy symptoms) famotidine 20 mg tablet 20 mg PO DAILY PRN (Reason: Acid Reflux) ptunqliqhqhb-iyqblxxv-blsijd tablet 1 tab PO DAILY Discharge Orders: Discharge Order (Routine); Ordered 07/18/22 Ordered By: Baldo Coy Admission Data Admit Date/Time: 07/17/22 18:22 Attending Provider: Baldo Coy Admit Provider: Baldo Coy Primary Care Provider: Sandy Shea Other Providers: Baldo Coy ; Mendel Barnhart Other Interventions: Discharge Summary Assessment (RN) Last Done: 07/18/22 15:00 Coding Diagnoses UGIB (upper gastrointestinal bleed) K92.2 RONNI (acute kidney injury) N17.9 Anemia D64.9 Anemia type: unspecified type SOLORIO (dyspnea on exertion) R06.09 Tobacco use disorder F17.200 Alcohol use disorder Hypertension I10 Acid reflux K21.9 Dyslipidemia E78.5
--- NOTE | 2022-07-18 15:03 | Gastrointestinal Consultation ---
Date of Consultation July 18, 2022 Assessment & Plan (1) Symptomatic anemia: (2) NSAID long-term use: (3) Alcohol use disorder: Plan symptomatic anemia 2/2 nsaid abuse and etoh abuse: likely PUD, improved s/p transfusion recs: --avoid NSAIDs --strict alcohol cessation --protonix 40 mg BID --EGD as an outpatient with Dr. Carlson Thank you for allowing me to participate in the care of this patient History of Present Illness Attending Physician: Baldo Coy MD History of Present Illness 67 yo female here with symptomatic anemia. She has a hx ETOH abuse drinking several drinks of vodka daily, as well as NSAID abuse with daily advil for arthritis for at least a year. Her labs were abnormal as outpt and she was sent in by her PCP. She has had fatigue, denies overt gi bleeding including hematochezia, hematemesis, epistaxis. Last colonoscopy with dr. carlson in 2016 had diverticulosis. hgb was below 6 on admission, now 9.3 s/p transfusion. she says that she will stop drinking now. no new labs to review. Allergies Allergy/AdvReac Type Severity Reaction Status Date / Time No Known Drug Allergies Allergy Verified 07/17/22 08:04 Home Medications Medication Instructions Recorded Confirmed Type diphenhydramine HCl 25 mg capsule 25 mg PO DAILY PRN allergy symptoms 07/19/19 07/17/22 History famotidine 20 mg tablet 20 mg PO DAILY PRN Acid Reflux 07/19/19 07/17/22 History lutein 25 mg-zeaxanthin 5 mg 1 cap PO DAILY 07/19/19 07/17/22 History capsule xthlabtzdwlk-dfpmvhrd-ayxcfb tablet 1 tab PO DAILY 07/19/19 07/17/22 History venlafaxine 75 mg capsule,extended 75 mg PO DAILY #90 caps 09/10/21 07/17/22 Rx release 24 hr valsartan 320 1 tab PO DAILY #90 tabs 02/17/22 07/17/22 Rx mg-hydrochlorothiazide 25 mg tablet atorvastatin 40 mg tablet 40 mg PO DAILY #90 tabs 05/18/22 07/17/22 Rx metoprolol succinate 50 mg 50 mg PO DAILY #90 tabs 06/01/22 07/17/22 Rx tablet,extended release 24 hr albuterol sulfate 90 mcg/actuation 1 inh inhalation QID PRN shortness 07/17/22 07/17/22 Rx aerosol inhaler of breath or wheezing #8.5 grams fluticasone furoate 200 1 inh inhalation DAILY #60 ea 07/17/22 07/17/22 Rx mcg-vilanterol 25 mcg/dose inhalation powder (Breo Ellipta) nicotine (polacrilex) 4 mg gum 4 mg buccal Q8H PRN Nicotine 07/17/22 07/17/22 History (Nicorette) Cravings nicotine See Rx Instructions transdermal 07/17/22 07/17/22 Rx 21mg/24hr-14mg/24hr-7mg/24hr daily .COMPLEX #56 patches transderm patches,sequentl folic acid 1 mg tablet 1 mg PO QAM #30 tabs 07/18/22 Rx pantoprazole 40 mg tablet,delayed 40 mg PO BID #60 tabs 07/18/22 Rx release thiamine HCl (vitamin B1) 100 mg 100 mg PO QAM #30 tabs 07/18/22 Rx tablet Patient History Medical History Acid reflux Acute kidney injury Alcohol use disorder Depression with anxiety Diverticulosis Dyslipidemia Hypertension Internal hemorrhoids Surgical History H/O hysterectomy with oophorectomy S/P ORIF (open reduction internal fixation) fracture R wrist Family History Father Diabetes Myocardial infarction Sister Diabetes Grandmother Breast cancer Grandfather Myocardial infarction Mother Lung cancer Denies family history of Ovarian cancer Prostate cancer Colorectal cancer Social History Smoking Status: Former smoker Tobacco Type: Cigarettes packs per day: 0.5; Years Smoked: 15; Cigarettes Per Day: 5-6; Second Hand Exposure: Yes (SPOUSE); Hx Alcohol Use: Yes Alcohol type: hard liquor Alcohol type Comment: vodka Alcohol Intake Frequency: 4 or More x per/Week Alcohol Intake Frequency Comment: 4-5 drinks Hx Substance Use: No Preferred Language: Romanian Communication Ability: Effective Visual Impairment: No Limitations Hearing Ability: Normal 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 Beliefs That Will Affect Care: None marital status: Current Living Situation: Spouse current occupational status: retired Other Information That Helps Us Care for You: No Feels Safe at Home: Yes Safety Concerns: Feels Safe At This Time Childhood Exposure to Second-Hand Smoke: Yes Diet Comment: regular caffeine: Yes (1 red bull daily) during the past year weight has: remained stable Dental Care, Regularly: No Physical Activity Frequency: 1-2 Times per Week Physical Activity Frequency Comment: walking Seatbelt Use: always Sunscreen Use: No Assistive Devices: Contacts, Denture - Upper, Denture - Lower and Glasses Review of Systems Constitutional: no fever and no chills Eyes: as per Subjective / HPI Ear, Nose, Mouth, Throat: as per Subjective / HPI Respiratory: no cough, no dyspnea and no dyspnea on exertion Cardiovascular: no chest pain and no dyspnea Gastrointestinal: as per Subjective / HPI Musculoskeletal: no joint pain and no swelling Integumentary: no rash and no lesions Neurologic: no numbness and no paresthesia Psychiatric: no depression and no anxiety Endocrine: no fatigue Hematologic / Lymphatic: no easy bleeding and no easy bruising Physical Exam Constitutional: WD/WN, vitals as above Eyes: EOM intact bilaterally Neck: normal visual inspection Respiratory: normal respiratory effort, lungs clear to auscultation Cardiovascular: RRR, no murmur, no edema Gastrointestinal (Abdomen): Inspection/Auscultation: abdomen normal to inspection; abdomen not distended Percussion/Palpation: abdomen soft; abdomen nontender and no hepatosplenomegaly Musculoskeletal: Extremities: no cyanosis Gait: normal gait Skin: no rashes, warm and dry Neurologic: moves all extremities Psychiatric: A+Ox3, euthymic affect Results & Data ([facility]) Vital Signs (Past 12 Hours) Vital Signs Temp Pulse Pulse Resp BP Pulse Ox O2 Del Method 07/18/22 11:15 37.5 C 93 H 18 177/85 H 93 Room Air 07/18/22 10:35 81 07/18/22 10:35 Room Air 07/18/22 07:57 36.7 C 93 H 16 188/84 H 93 Room Air 07/18/22 03:38 37.1 C 82 16 175/80 H 91 Room Air PG Care Time/CCT Total # of Minutes Spent Total Time Spent with Patient: Total time spent is greater than 50% in coordination of care (as documented) at patient's floor/unit and/or counseling patient: Coding Level of Care Code 83533 Initial Inpt Care Lvl 3 Diagnoses Symptomatic anemia D64.9 NSAID long-term use Z79.1 Alcohol use disorder
== END 2022-07-18 15:35 | disposition home or self-care (01) | DRG 378 ==
LOC: ED 15:12 → 2S 18:22

== ENCOUNTER 2022-08-11 14:30 | Observation (INO) ==
[2022-08-11 15:49] LABS: Basophils # (auto) 0.08 K/uL (0-0.2); Basophils % (auto) 0.6 %; Eosinophils # (auto) 0.18 K/uL (0-0.50); Eosinophils % (auto) 1.2 %; Hematocrit (blood only) 28.2 % (34.1-44.9); Hemoglobin 8.8 g/dl (12.0-16.0); Immature Granulocytes # (auto) 0.16 K/uL (0.00-0.02); Immature Granulocytes % (auto) 1.1 %; Lymphocytes # (auto) 1.55 K/uL (1.2-3.4); Lymphocytes % (auto) 10.7 %; Mean Corpuscular Hemoglobin 27.2 pg (25.0-34.0); Mean Corpuscular Hgb Conc 31.2 g/dL (32.0-36.0); Mean Platelet Volume 11.9 fL (9.4-12.3); Monocytes # (auto) 1.09 K/uL (0.24-0.82); Monocytes % (auto) 7.5 %; Neutrophils # (auto) 11.39 K/uL (1.4-6.5); Neutrophils % (auto) 78.9 %; Platelet Count 561 K/uL (130-400); RDW Coefficient of Variation 15.2 % (11.5-14.5); RDW Standard Deviation 48.3 fL (36.4-46.3); Red Blood Count 3.24 M/uL (3.93-5.22); White Blood Count 14.45 K/ul (4.8-10.8)
[2022-08-11 15:53] LABS: Albumin Globulin Ratio 0.9 (0.9-2); Albumin Level 3.6 gm/dl (3.4-5.0); BUN Creatinine Ratio 15.6 (10-20); Bilirubin,Total 0.5 mg/dl (0.2-1.0); Calcium 10.9 mg/dl (8.5-10.1); Creatinine Clr Calc Pharmacy 23.4 ml/min; Est GFR (African American) 32.9 ml/min; Est GFR (Non-African American) 28.4 ml/min; Globulin 4.1 gm/dl (2.5-4.0); Potassium 4.3 mmol/L (3.5-5.1); Total Protein 7.7 gm/dl (6.0-8.3)
[2022-08-11] MEDS ORDERED: SODIUM CHLORIDE 0.9% 1000ML 1,000 ML IV ONE ×2 (16:35→18:39)
--- NOTE | 2022-08-11 16:40 | Emergency Department Note ---
Impression & Plan SIRS (systemic inflammatory response syndrome), Rash, Newly recognized heart murmur ED Provider Note NAME: JOSE ALBERTO COFFMAN AGE: 67 SEX: F : 1955 ARRIVES VIA: Walk-In INFORMANT: Patient ED PROVIDER(S): Reji Langley DO CHIEF COMPLAINT: rash HPI: Patient is a 67-year-old female who presents to the ER with a past medical history of upper GI bleed likely secondary to NSAID use and alcohol abuse who presents for rash on the legs and arms. This been going on for over a week. Saw her PCP for this as well as nephrology. Appears to have this worked up as a n outpatient but she has gotten no answers at this time. She denies any headache or change in vision. No chest pain or shortness of breath. Does admit to some swelling in the lower extremities. No dysuria, urgency, or frequency. She notes that she did start a new medication venlafaxine but she has actually been on this for some time and just change the dosing. Amlodipine does appear to be new. She notes that they are not painful nor are they itchy. ROS: See above HPI for pertinent positives & negatives. A total of 10 systems reviewed and were otherwise negative. PAST MEDICAL HISTORY:See Below PAST SURGICAL HISTORY:See Below FAMILY HISTORY:See Below SOCIAL HISTORY:See Below HOME MEDICATIONS:See Below ALLERGIES:See Below VITALS:See Below PHYSICAL EXAMINATION: GENERAL: Sitting up in bed, alert, well appearing, well nourished, no distress, non-toxic EYE EXAM: normal conjunctiva. OROPHARYNX: mucous membranes are moist NECK: supple, no nuchal rigidity, no adenopathy, non-tender LUNGS: Clear to auscultation. Normal chest wall mechanics HEART: +NATALIE, S1 normal and S2 normal ABDOMEN: abdomen soft, non-tender, normo-active bowel sounds, no masses, no rebound or guarding. SKIN: Areas of small erythema which is slightly raised which malcolm. Negative Nikolsky. Nontender UPPER EXTREMITIES: upper extremities are grossly normal. LOWER EXTREMITIES: Faint pitting edema bilaterally NEURO EXAM: Normal sensorium, cranial nerves II-XII grossly intact, normal speech, no gross weakness of arms, no gross weakness of legs. MEDICAL DECISION MAKING: Patient is a 67-year-old female who presents the ER for the above-stated complaint. She came in for a rash and was found to be afebrile. She is an alcoholic. IV was established blood work was obtained. Labs showed a leukocytosis of 14,000. Mild anemia at 8.8 consistent with previous. There is no thrombocytopenia. INR unremarkable. There is a mild acidosis with an anion gap. Creatinine was 1.7. Lactate was normal. COVID was negative. No urinary symptoms but she was unable to give a urine while in the ER. Chest x-ray was unremarkable. Doppler of the lower extremity showed no DVT. She was given cefepime and Vanco. She does have a new murmur as when I went back through her chart I saw no history of a heart murmur with a rash and fevers. Discussed with the hospitalist for further evaluation. Triage Nursing notes reviewed. Limited review of prior medical records performed Vital Signs: reviewed and remarkable for no significant abnormalities Differential diagnosis: Contact dermatitis, viral exanthem, urticaria, allergic reaction, Wills- Gonzalez syndrome, toxic epidermal necrolysis, erythema multiforme, cellulitis, scabies, HSV, varicella, zoster, eczema, staph scalded skin syndrome, fungal infection, as well as other pathologies. ER treatment provided: See below Diagnostics interpreted by me: ECG: Sinus rhythm rate of 106 Normal axis No PVCs Septal Q waves QTC 464 No significant change from previous Cardiac Monitoring: An order was placed for continuous cardiac monitoring. The monitor shows a rate of 101 with sinus rhythm. Laboratory studies: As stated above and show below. Imaging studies: Portable AP upright 1 view of the chest was unremarkable Consultation(s): Discussed with Dr. Jean Balbuena for further evaluation Procedures: none Critical Care: None Past Med/Surg History Medical History (Updated 08/11/22 @ 22:19 by Reji Langley DO) Acid reflux Alcohol use disorder Anemia Arthritis Depression Depression with anxiety Diverticulosis Dyslipidemia Hypertension Internal hemorrhoids Vitamin D deficiency Surgical History H/O hysterectomy with oophorectomy History of section x1 History of colonoscopy History of tonsillectomy History of tooth extraction S/P ORIF (open reduction internal fixation) fracture R wrist Family History Father Diabetes Myocardial infarction Sister Diabetes Grandmother Breast cancer Grandfather Myocardial infarction Mother Lung cancer Denies family history of Ovarian cancer Prostate cancer Colorectal cancer Social History Smoking Status: Never smoker Tobacco Type: Cigarettes packs per day: 0.5; Years Smoked: 15; Cigarettes Per Day: 1-2 per day; Second Hand Exposure: No; Hx Alcohol Use: Yes Alcohol type: hard liquor Alcohol type Comment: vodka Alcohol Intake Frequency: 4 or More x per/Week Alcohol Intake Frequency Comment: 4-5 drinks Hx Substance Use: No Preferred Language: Togolese Communication Ability: Effective Visual Impairment: No Limitations Hearing Ability: Normal 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 Beliefs That Will Affect Care: None marital status: Current Living Situation: Spouse current occupational status: retired Feels Safe at Home: Yes Childhood Exposure to Second-Hand Smoke: Yes Diet Comment: regular caffeine: Yes (1 red bull daily) during the past year weight has: remained stable Dental Care, Regularly: No Physical Activity Frequency: 1-2 Times per Week Physical Activity Frequency Comment: walking Seatbelt Use: always Sunscreen Use: No Assistive Devices: Denture - Upper, Denture - Lower and Glasses Allergies Allergies Allergy/AdvReac Type Severity Reaction Status Date / Time No Known Allergies Allergy Verified 08/11/22 18:03 Home Meds Home Medications Medication Instructions Recorded Confirmed lutein 25 mg-zeaxanthin 5 mg 1 cap PO QAM 07/19/19 08/11/22 capsule bfhuvtdlrtyd-lrllykdq-sknvbk tablet 1 tab PO QAM 07/19/19 08/11/22 nicotine (polacrilex) 4 mg gum 4 mg buccal Q8H PRN Nicotine 07/17/22 08/11/22 (Nicorette) Cravings atorvastatin 40 mg tablet 40 mg PO QAM 07/24/22 08/11/22 ferrous sulfate 325 mg (65 mg 325 mg PO QAM 07/24/22 08/11/22 iron) tablet fluticasone furoate 200 1 inh inhalation QAM 07/24/22 08/11/22 mcg-vilanterol 25 mcg/dose inhalation powder (Breo Ellipta) metoprolol succinate 50 mg 50 mg PO QAM 07/24/22 08/11/22 tablet,extended release 24 hr venlafaxine 150 mg 150 mg PO QAM 07/24/22 08/11/22 capsule,extended release 24 hr amlodipine 5 mg tablet 5 mg PO DAILY 08/04/22 08/11/22 Previous Rx's Medication Instructions Recorded albuterol sulfate 90 mcg/actuation 1 inh inhalation QID PRN shortness 07/17/22 aerosol inhaler of breath or wheezing #8.5 grams nicotine See Rx Instructions transdermal 07/17/22 21mg/24hr-14mg/24hr-7mg/24hr daily .COMPLEX #56 patches transderm patches,sequentl pantoprazole 40 mg tablet,delayed 40 mg PO BID #60 tabs 07/18/22 release thiamine HCl (vitamin B1) 100 mg 100 mg PO QAM #30 tabs 07/18/22 tablet Results & Data (ED) Vital Signs Vital Signs - 24 hr 08/11/22 14:46 08/11/22 16:56 08/11/22 19:19 Temperature 36.6 C 38.3 C H Temperature Source Oral Rectal Pulse Rate 84 Pulse Rate [Apical] 90 Respiratory Rate 18 18 Respiratory Effort / Characteristics Non-Labored Spontaneous Non-Labored Spontaneous Respiratory Depth Normal Normal Respiratory Pattern Regular Blood Pressure 119/63 Blood Pressure [Left Arm] 158/68 H Blood Pressure Mean 81 Blood Pressure Mean [Left Arm] 98 Blood Pressure Position Sitting Pulse Oximetry 100 96 Oxygen Delivery Method Room Air Room Air Sepsis Recent Fever Within 48 Hours No Sepsis New/Unexplained Change in Mental Status N/A Sepsis Action Taken by Nursing No Action Required 08/11/22 22:00 Temperature Temperature Source Pulse Rate Pulse Rate [Apical] 103 H Respiratory Rate 18 Respiratory Effort / Characteristics Non-Labored Spontaneous Respiratory Depth Normal Respiratory Pattern Blood Pressure Blood Pressure [Left Arm] 165/93 H Blood Pressure Mean Blood Pressure Mean [Left Arm] 117 Blood Pressure Position Pulse Oximetry 96 Oxygen Delivery Method Room Air Sepsis Recent Fever Within 48 Hours Sepsis New/Unexplained Change in Mental Status Sepsis Action Taken by Nursing Laboratory Data Result diagrams: 08/11/22 15:05 08/11/22 15:05 Lab Results 08/11/22 08/11/22 08/11/22 Range/Units 15:05 15:05 16:40 WBC 14.45 H (4.8-10.8) K/ul RBC 3.24 L (3.93-5.22) M/uL Hgb 8.8 L (12.0-16.0) g/dl Hct 28.2 L (34.1-44.9) % MCV 87.0 (80.0-100.0) fL MCH 27.2 (25.0-34.0) pg MCHC 31.2 L (32.0-36.0) g/dL RDW Std Deviation 48.3 H (36.4-46.3) fL RDW Coeff of Arlet 15.2 H (11.5-14.5) % Plt Count 561 H (130-400) K/uL MPV 11.9 (9.4-12.3) fL Immature Gran % (Auto) 1.1 % Neut % (Auto) 78.9 % Lymph % (Auto) 10.7 % Preston % (Auto) 7.5 % Eos % (Auto) 1.2 % Baso % (Auto) 0.6 % Neut # (Auto) 11.39 H (1.4-6.5) K/uL Lymph # (Auto) 1.55 (1.2-3.4) K/uL Preston # (Auto) 1.09 H (0.24-0.82) K/uL Eos # (Auto) 0.18 (0-0.50) K/uL Baso # (Auto) 0.08 (0-0.2) K/uL Immature Gran # (Auto) 0.16 H (0.00-0.02) K/uL PT 11.4 (9.0-12.0) Seconds INR 1.1 (0.9-1.1) APTT 29.6 (21.0-31.0) Seconds PTT Ratio 1.1 Sodium 132 L (136-145) mmol/L Potassium 4.3 (3.5-5.1) mmol/L Chloride 97 L (98-107) mmol/L Carbon Dioxide 20 L (21-32) mmol/L Anion Gap 15 H (3-11) BUN 28 H (6-23) mg/dl Creatinine 1.79 H (0.6-1.2) mg/dl Est Cr Clr Drug Dosing 23.4 ml/min Est GFR ( Amer) 32.9 ml/min Est GFR (Non-Af Amer) 28.4 ml/min BUN/Creatinine Ratio 15.6 (10-20) Glucose 96 (70-99(Fasting)) mg/dl Lactate (0.4-2.0) mmol/L Calcium 10.9 H (8.5-10.1) mg/dl Total Bilirubin 0.5 (0.2-1.0) mg/dl AST 28 (13-39) U/L ALT 26 (7-52) U/L Alkaline Phosphatase 70 (34-104) U/L Total Protein 7.7 (6.0-8.3) gm/dl Albumin 3.6 (3.4-5.0) gm/dl Globulin 4.1 H (2.5-4.0) gm/dl Albumin/Globulin Ratio 0.9 (0.9-2) SARS-CoV-2, RNA, NAAT (NEGATIVE) 08/11/22 08/11/22 Range/Units 19:20 20:22 WBC (4.8-10.8) K/ul RBC (3.93-5.22) M/uL Hgb (12.0-16.0) g/dl Hct (34.1-44.9) % MCV (80.0-100.0) fL MCH (25.0-34.0) pg MCHC (32.0-36.0) g/dL RDW Std Deviation (36.4-46.3) fL RDW Coeff of Arlet (11.5-14.5) % Plt Count (130-400) K/uL MPV (9.4-12.3) fL Immature Gran % (Auto) % Neut % (Auto) % Lymph % (Auto) % Preston % (Auto) % Eos % (Auto) % Baso % (Auto) % Neut # (Auto) (1.4-6.5) K/uL Lymph # (Auto) (1.2-3.4) K/uL Preston # (Auto) (0.24-0.82) K/uL Eos # (Auto) (0-0.50) K/uL Baso # (Auto) (0-0.2) K/uL Immature Gran # (Auto) (0.00-0.02) K/uL PT (9.0-12.0) Seconds INR (0.9-1.1) APTT (21.0-31.0) Seconds PTT Ratio Sodium (136-145) mmol/L Potassium (3.5-5.1) mmol/L Chloride (98-107) mmol/L Carbon Dioxide (21-32) mmol/L Anion Gap (3-11) BUN (6-23) mg/dl Creatinine (0.6-1.2) mg/dl Est Cr Clr Drug Dosing ml/min Est GFR ( Amer) ml/min Est GFR (Non-Af Amer) ml/min BUN/Creatinine Ratio (10-20) Glucose (70-99(Fasting)) mg/dl Lactate 1.2 (0.4-2.0) mmol/L Calcium (8.5-10.1) mg/dl Total Bilirubin (0.2-1.0) mg/dl AST (13-39) U/L ALT (7-52) U/L Alkaline Phosphatase (34-104) U/L Total Protein (6.0-8.3) gm/dl Albumin (3.4-5.0) gm/dl Globulin (2.5-4.0) gm/dl Albumin/Globulin Ratio (0.9-2) SARS-CoV-2, RNA, NAAT NEGATIVE (NEGATIVE) Administered Medications Discontinued Medications Cefepime HCl (Cefepime 2,000 Mg/20 Ml Vial) Confirm Administered Dose 2,000 mg .ROUTE .STK-MED ONE Stop: 08/11/22 19:17 Last Admin: 08/11/22 19:18 Dose: 2,000 mg Documented By: ARASH Sodium Chloride (Nss 1000ml) 1,000 mls @ 999 mls/hr IV .Q1H1M ONE Stop: 08/11/22 17:35 Last Infusion: 08/11/22 18:28 Dose: 0 mls/hr Documented By: Admin: 08/11/22 16:44 Dose: 999 mls/hr Documented By: JAZMINE Cefepime HCl 2,000 mg/ Syringe 20 mls @ 5 mls/min IV NOW STA; Protocol Stop: 08/11/22 18:38 Last Admin: 08/11/22 19:18 Dose: Not Given Documented By: ARASH Vancomycin HCl 1,000 mg/ (Sodium Chloride) 520 mls @ 200 mls/hr IV NOW ONE Stop: 08/11/22 21:10 Last Admin: 08/11/22 19:29 Dose: 200 mls/hr Documented By: JRE Sodium Chloride (Nss 1000ml) 1,000 mls @ 999 mls/hr IV .Q1H1M ONE Stop: 08/11/22 19:39 Last Infusion: 08/11/22 21:00 Dose: 0 mls/hr Documented By: Admin: 08/11/22 19:18 Dose: 999 mls/hr Documented By: ARASH Methylprednisolone (Methylprednisolone 125 Mg/2 Ml Vial) 125 mg IV NOW STA Stop: 08/11/22 19:43 Last Admin: 08/11/22 20:16 Dose: 125 mg Documented By: ARASH Imaging Data Radiologist's Impression: Venous Doppler Study 08/11/22 16:34 RIGHT LOWER EXTREMITY VENOUS DOPPLER HISTORY: r leg swelling COMPARISON STUDY: None. FINDINGS: There is normal compressibility, flow, and augmentation within the right lower extremity deep venous system. IMPRESSION: No DVT within the right lower extremity ACT 112: Negative or not required by law. Electronically signed by: Mir Siddiqi M.D. 08/11/2022 6:07 PM Chest X-Ray 08/11/22 18:36 XR chest 1V portable HISTORY: fever COMPARISON: Chest 07/17/2022. FINDINGS: No focal lung consolidations to suggest a pneumonia. No evidence for pulmonary edema. The cardiac silhouette remains mildly enlarged. No pleural effusions. No pneumothorax. Degenerative changes again noted within the shoulders. IMPRESSION: Stable mild cardiomegaly. Otherwise, no acute process within the chest. ACT 112: Negative or not required by law. Electronically signed by: Mir Siddiqi M.D. 08/11/2022 9:00 PM Discharge Plan Visit Data Chief Complaint: Illness Stated Complaint: SPOTS ON LEGS AND ARMS ED Provider: Reji Langley Discharge Problem: SIRS (systemic inflammatory response syndrome), Rash, Newly recognized heart murmur Patient Disposition: Admitted As Inpatient Discharge Instructions Interventions: ED Discharge Assessment Last Done: 08/11/22 22:05 Forms Stand Alone Forms: My [facility] Prescriptions Prescriptions: No Action nicotine (polacrilex) [Nicorette] 4 mg gum 4 mg buccal Q8H PRN (Reason: Nicotine Cravings) albuterol sulfate 90 mcg/actuation HFA aerosol inhaler 1 inh inhalation QID PRN (Reason: shortness of breath or wheezing) Qty: 8.5 0RF nicotine 21-14-7 mg/24 hr patch, TD daily, sequential See Rx Instructions transdermal .COMPLEX Qty: 56 0RF Rx Instructions: apply 1-21 mg NICOTINE PATCH daily for 28 days; follow with 1-14 mg PATCH daily for 14 days, then 1-7mg PATCH daily for 14 days transdermal amlodipine 5 mg tablet 5 mg PO DAILY lutein-zeaxanthin 25-5 mg capsule 1 cap PO QAM fftnqbvplkxc-bgguvrst-rqthkh tablet 1 tab PO QAM thiamine HCl (vitamin B1) 100 mg Tablet 100 mg PO QAM Qty: 30 0RF pantoprazole 40 mg tablet,delayed release (DR/EC) 40 mg PO BID Qty: 60 0RF atorvastatin 40 mg tablet 40 mg PO QAM metoprolol succinate 50 mg tablet extended release 24 hr 50 mg PO QAM venlafaxine 150 mg capsule,extended release 24hr 150 mg PO QAM Rx Instructions: rx changed dose ferrous sulfate 325 mg (65 mg iron) tablet 325 mg PO QAM fluticasone furoate-vilanterol [Breo Ellipta] 200-25 mcg/dose blister with device 1 inh inhalation QAM Referrals Referrals: Sandy Shea DO [Primary Care Provider] -
[2022-08-11 17:03] LABS: INR 1.1 (0.9-1.1); Partial Thromboplastin Ratio 1.1; Partial Thromboplastin Time 29.6 Seconds (21.0-31.0); Prothrombin Time 11.4 Seconds (9.0-12.0)
--- NOTE | 2022-08-11 18:10 | Ultrasound Report ---
RIGHT LOWER EXTREMITY VENOUS DOPPLER HISTORY: r leg swelling COMPARISON STUDY: None. FINDINGS: There is normal compressibility, flow, and augmentation within the right lower extremity de ep venous system. IMPRESSION: No DVT within the right lower extremity ACT 112: Negative or not required by law. Electronically signed by: Mir Siddiqi M.D. 08/11/2022 6:07 PM
[2022-08-11] MEDS ORDERED: CEFEPIME 2,000 MG in SYRINGE 0 ML IV STA (18:35)
[2022-08-11] MEDS ORDERED: VANCOMYCIN CONSULT ACTIVE PRN (18:35)
[2022-08-11] MEDS ORDERED: VANCOMYCIN HCL 1,000 MG in SODIUM CHLORIDE 0.9% 500 ML IV ONE (18:35)
--- NOTE | 2022-08-11 18:49 | History & Physical Report ---
Date of Service August 11, 2022 Assessment & Plan (1) Rash: Plan: -Unclear etiology, rash does not appear as classic vasculitis though clinical history, symmetric nature, 1 week without clinical evolution, previous history of elevated rheumatologic markers suggests vasculitis as most likely cause -Acute infectious etiologies less likely, though endocarditis remains on differential although lesion location and type are not typical of endocarditis rash 2/2 septic emboli -TTE ordered for AM -MRSA nares swab ordered -08/06 outpatient labs- ESR 84, CRP 16, RF 65, Lyme negative, multiple labs still pending -CXR, lactate, BCx, UCx pending -IV Solumedrol 125 mg given on admission, prednisone 40 mg daily ordered to begin in AM -Discontinued antibiotics due to low suspicion for acute bacterial infection at present -Dermatology consulted (2) Heart murmur: Plan: -New systolic murmur noted on exam -Echocardiogram ordered for AM to r/o endocarditis as above (3) Anemia: Plan: -Hgb 8.8 on admission, baseline appears ~9 -Known history of iron deficiency anemia at baseline and previous GI bleeds, history of blood transfusions -Continue ferrous sulfate -Trend CBC (4) Leukocytosis: Plan: -WBC 14.5 on admission -Vancomycin/cefepime given in ED -Discontinued antibiotics due to low suspicion for bacterial infection as above -Trend CBC (5) Depression with anxiety: Plan: -Continue Effexor 150 mg daily (6) Hypertension: Plan: -Continue amlodipine 5 mg daily -Continue metoprolol succinate 50 mg daily (7) Alcohol use disorder: Plan: -Last drink at 8:00 PM on 08/10 -No concern for withdrawal at present (8) Tobacco use disorder: Plan: -Continue nicotine patch/gum (9) Acid reflux: Plan: -Protonix 40 mg PO BID switched to IV Protonix 40 mg daily while on steroids (10) Dyslipidemia: Plan: -Continue atorvastatin 40 mg daily (11) CKD (chronic kidney disease): Plan: -Cr 1.79 on admission, at baseline per 08/06 nephrology note -Trend BMP Plan FENGI: Regular Code status: Full DVT ppx: SCDs Isolation: None Dispo: Medical/surgical History of Present Illness Chief Complaint: Illness Primary Care Provider: Sandy Shea DO 67 yo F with [facility] previous [facility] admission in 06/2022, alcohol use disorder, CKD3, anemia, tobacco use disorder, HTN, GERD, HLD, depression presenting with acute rash. Pt notes onset of rash 1 week prior- all four limbs from wrist to shoulder and ankle to thigh. Rash features multiple poorly demarcated flat, red ovoid lesions. Rash is not pruritic, warm or painful though pt reports minor discomfort on palpation. Rash did not evolve over past week, though pt has experienced about 7 lbs unintentional weight loss over past few weeks and 1 week of poor appetite and fatigue since rash onset. Also notes development of mild swelling of ankles b/l over past 2 days. Denies any other systemic symptoms, no fever, chills, shortness of breath, headache. Pt denies any new environmental or dietary exposures prior to rash onset. She did start new medications recently- pantoprazole on 07/18 and amlodipine on 07/24. Did have dose increase of her Effexor 75 mg to 150 mg on 07/24. Went to her PCP for this rash on 08/04 and multiple rheumatologic/immune labs ordered. Pt arrived to ED hemodynamically stable though with temperature 38.3 C. Admission labs WBC 14.5, Hgb 8.8, Plts 561, Na 132, Cr 1.79, AG 15. Received NSS, administered vancomycin/cefepime for empiric therapy. BCx, UCx pending. EKG with sinus tachycardia and PACs, no acute ST change. On evaluation, pt reports feeling well without acute complaint. Denies any pain, notes rash has not changed, swelling unchanged as well. Denies chest pain, fever/chills, shortness of breath. Allergies Allergy/AdvReac Type Severity Reaction Status Date / Time No Known Allergies Allergy Verified 08/11/22 18:03 Home Medications Medication Instructions Recorded Confirmed Type lutein 25 mg-zeaxanthin 5 mg 1 cap PO QAM 07/19/19 08/11/22 History capsule hrbrbforfdkv-lyrigywg-pvyscp tablet 1 tab PO QAM 07/19/19 08/11/22 History albuterol sulfate 90 mcg/actuation 1 inh inhalation QID PRN shortness 07/17/22 08/11/22 Rx aerosol inhaler of breath or wheezing #8.5 grams nicotine (polacrilex) 4 mg gum 4 mg buccal Q8H PRN Nicotine 07/17/22 08/11/22 History (Nicorette) Cravings nicotine See Rx Instructions transdermal 07/17/22 08/11/22 Rx 21mg/24hr-14mg/24hr-7mg/24hr daily .COMPLEX #56 patches transderm patches,sequentl pantoprazole 40 mg tablet,delayed 40 mg PO BID #60 tabs 07/18/22 08/11/22 Rx release thiamine HCl (vitamin B1) 100 mg 100 mg PO QAM #30 tabs 07/18/22 08/11/22 Rx tablet atorvastatin 40 mg tablet 40 mg PO QAM 07/24/22 08/11/22 History ferrous sulfate 325 mg (65 mg 325 mg PO QAM 07/24/22 08/11/22 History iron) tablet fluticasone furoate 200 1 inh inhalation QAM 07/24/22 08/11/22 History mcg-vilanterol 25 mcg/dose inhalation powder (Breo Ellipta) metoprolol succinate 50 mg 50 mg PO QAM 07/24/22 08/11/22 History tablet,extended release 24 hr venlafaxine 150 mg 150 mg PO QAM 07/24/22 08/11/22 History capsule,extended release 24 hr amlodipine 5 mg tablet 5 mg PO DAILY 08/04/22 08/11/22 History Past Med/Surg History Medical History (Updated 08/11/22 @ 20:14 by Jyoti Willis MD) Acid reflux Alcohol use disorder Anemia Arthritis Depression Depression with anxiety Diverticulosis Dyslipidemia Hypertension Internal hemorrhoids Vitamin D deficiency Surgical History H/O hysterectomy with oophorectomy History of section x1 History of colonoscopy History of tonsillectomy History of tooth extraction S/P ORIF (open reduction internal fixation) fracture R wrist Family History Father Diabetes Myocardial infarction Sister Diabetes Grandmother Breast cancer Grandfather Myocardial infarction Mother Lung cancer Denies family history of Ovarian cancer Prostate cancer Colorectal cancer Social History Smoking Status: Never smoker Tobacco Type: Cigarettes packs per day: 0.5; Years Smoked: 15; Cigarettes Per Day: 1-2 per day; Second Hand Exposure: No; Hx Alcohol Use: Yes Alcohol type: hard liquor Alcohol type Comment: vodka Alcohol Intake Frequency: 4 or More x per/Week Alcohol Intake Frequency Comment: 4-5 drinks Hx Substance Use: No Preferred Language: Mosotho Communication Ability: Effective Visual Impairment: No Limitations Hearing Ability: Normal [employer] Consultant Required: No Beliefs That Will Affect Care: None marital status: Current Living Situation: Spouse current occupational status: retired Feels Safe at Home: Yes Childhood Exposure to Second-Hand Smoke: Yes Diet Comment: regular caffeine: Yes (1 red bull daily) during the past year weight has: remained stable Dental Care, Regularly: No Physical Activity Frequency: 1-2 Times per Week Physical Activity Frequency Comment: walking Seatbelt Use: always Sunscreen Use: No Assistive Devices: Denture - Upper, Denture - Lower and Glasses Review of Systems 2 Review of Systems: Per subjective Physical Exam Physical Exam: General: tired-appearing, no acute distress HEENT: Anicteric sclerae, mildly dry mucous membranes, EOMI, PERRLA, no conjunctival injection, no lymphadenopathy CV: RRR, normal S1 and S2, +low grade systolic murmur at apex Resp: CTAB, unlabored respirations Abd: soft, nontender, nondistended, no guarding or rebound MSK: normal bulk and tone of b/l UE and LE Neuro: AOx3, no focal motor or sensory deficits Skin: mild central pallor, no jaundice, scattered flat erythematous lesions with few papules along wrists to shoulder and ankles to proximal thigh b/l- lesions mildly tender to palpation, blanching, no warmth Psych: normal mood, stable affect Results & Data Results & Data ([facility]) Vital Signs (Past 12 Hours) Vital Signs Temp Pulse Resp BP Pulse Ox O2 Del Method 08/11/22 16:56 38.3 C H 08/11/22 14:46 36.6 C 84 18 119/63 100 Room Air Supervising Physician Co-Signing Physician Notes Resident Physician Supervision Note: I interviewed and examined the patient. Discussed with Dr. Jyoti Willis and agree with findings and plan as documented in the note. Any exceptions or clarifications are listed here: 67-year-old female who left the hospital July 18 after upper GI bleed with a history of alcohol use who presents with a rash on her upper and lower extremities this is a focal papular rash is not pruritic is mildly tender is pale in color it does involve her soles on her left foot but not her palms she has no areas of issues within her mouth or issues on her trunk New medications include amlodipine and Protonix to Pradaxa start at time of discharge the rash began approximately a week or so after that after the amlodipine Patient continues to feel tired she is concerned that the rash is not gone away she has had an outpatient work-up from her primary care provider with pending studies on with regard to CHARISSE ANCA her inflammatory markers have been high Examination she looks pale but she is anemic from her previous admission her bilirubin and liver function tests have been stable condition she is elevated white count and platelets , Renal function is mildly elevated but stable she is chronic kidney disease stage III chest x-ray is clear blood cultures are pending urinalysis and urine cultures pending Patient be brought in concerned that this could be a vasculitis or drug reaction. Patient will have inflammatory markers resent urinalysis to look for active sediment she is given a dose of methylprednisolone start on prednisone tomorrow but antibiotics which were started in the ER would not be continued unless we have a focus source consideration for dermatology or rheumatology evaluation Documented By: Jean Balbuena MD Resident Activity Tracking Resident Involvement: Resident Care Provided Care Provided: Adult [facility] Medicine
[2022-08-11] MEDS ORDERED: CEFEPIME 2,000 MG/20 ML VIAL ONE (19:16)
[2022-08-11] MEDS ORDERED: methylPREDNISolone 125 MG/2 ML VIAL IV STA (19:42)
--- NOTE | 2022-08-11 20:25 | Billing Data ---
Date of Service August 11, 2022 Coding Level of Care Code 46395 Initial Inpt Care Lvl 2
--- NOTE | 2022-08-11 21:02 | XRay Report ---
XR chest 1V portable HISTORY: fever COMPARISON: Chest 07/17/2022. FINDINGS: No focal lung consolidations to suggest a pneumonia. No evidence for pulmonary edema. The c ardiac silhouette remains mildly enlarged. No pleural effusions. No pneumothorax. Degenerative change s again noted within the shoulders. IMPRESSION: Stable mild cardiomegaly. Otherwise, no acute process within the chest. ACT 112: Negative or not required by law. Electronically signed by: Mir Siddiqi M.D. 08/11/2022 9:00 PM
[2022-08-11] MEDS ORDERED: ALBUTEROL HFA 8 GM INHALER INH PRN (22:36)
[2022-08-11] MEDS ORDERED: ACETAMINOPHEN 325 MG TAB PO PRN (22:36)
[2022-08-11] MEDS ORDERED: ONDANSETRON INJ 2 MG/ML 2 ML VIAL IV PRN (22:36)
[2022-08-12] MEDS ORDERED: NICOTINE POLACRILEX 2 MG GUM MT PRN (00:19)
[2022-08-12] MEDS ORDERED: MELATONIN 3 MG TAB PO PRN (00:52)
[2022-08-12 06:13] LABS: Appearance Urine Clear (Clear); Bilirubin Urine Negative (Negative); Blood Urine Negative (Negative); Color Urine Yellow; Glucose Urine UA Negative (Negative); Ketones Urine Trace (Negative); Leukocyte Esterase Urine Negative (Negative); Nitrite Urine Negative (Negative); Protein Urine Negative (Negative); Specific Gravity Urine 1.016 (1.000-1.030); Urobilinogen Urine Negative (Negative)
[2022-08-12 06:26] LABS: Basophils # (auto) 0.02 K/uL (0-0.2); Basophils % (auto) 0.3 %; Hematocrit (blood only) 24.3 % (34.1-44.9); Hemoglobin 7.6 g/dl (12.0-16.0); Immature Granulocytes % (auto) 1.3 %; Lymphocytes # (auto) 0.72 K/uL (1.2-3.4); Lymphocytes % (auto) 9.5 %; Mean Corpuscular Hemoglobin 26.9 pg (25.0-34.0); Mean Corpuscular Hgb Conc 31.3 g/dL (32.0-36.0); Mean Corpuscular Volume 85.9 fL (80.0-100.0); Mean Platelet Volume 11.5 fL (9.4-12.3); Monocytes % (auto) 1.3 %; Neutrophils # (auto) 6.66 K/uL (1.4-6.5); Neutrophils % (auto) 87.6 %; Platelet Count 471 K/uL (130-400); RDW Standard Deviation 47.3 fL (36.4-46.3); Red Blood Count 2.83 M/uL (3.93-5.22)
--- NOTE | 2022-08-12 06:36 | Communication Note ---
Date of Service: August 12, 2022 AM Hb 7.6 noted. deferring to dayshift.
[2022-08-12 07:04] LABS: Albumin Globulin Ratio 0.9 (0.9-2); BUN Creatinine Ratio 19.1 (10-20); Bilirubin,Total 0.3 mg/dl (0.2-1.0); Calcium 9.1 mg/dl (8.5-10.1); Est GFR (African American) 38.6 ml/min; Est GFR (Non-African American) 33.3 ml/min; Globulin 3.5 gm/dl (2.5-4.0); Magnesium 1.3 mg/dl (1.7-2.4); Potassium 4.2 mmol/L (3.5-5.1); Total Protein 6.5 gm/dl (6.0-8.3)
[2022-08-12] MEDS ORDERED: CEROVITE ADV FORMULA TAB PO SCH (09:00)
[2022-08-12] MEDS ORDERED: FERROUS SULFATE 325 MG TAB PO SCH (09:00)
[2022-08-12] MEDS ORDERED: VENLAFAXINE HCL XR 150 MG CAPXR PO SCH (09:00)
[2022-08-12] MEDS ORDERED: METOPROLOL SUCC 50MG EXT REL TAB PO SCH (09:00)
[2022-08-12] MEDS ORDERED: THIAMINE HCL 100 MG TAB PO SCH (09:00)
[2022-08-12] MEDS ORDERED: ATORVASTATIN 40 MG TAB PO SCH (09:00)
[2022-08-12] MEDS ORDERED: amLODIPine BESYLATE 5 MG TAB PO SCH (09:00)
[2022-08-12] MEDS ORDERED: FLUTICASONE/VILANTEROL 200/25MCG 14 PUFFS/INHALER INH SCH (09:00)
[2022-08-12] MEDS ORDERED: predniSONE 20 MG TAB PO SCH (09:00)
[2022-08-12] MEDS ORDERED: PANTOprazole 40 MG in SYRINGE 0 ML IV SCH (11:00)
--- NOTE | 2022-08-12 13:01 | Dermatology Consultation ---
Date of Consultation August 12, 2022 Assessment & Plan (1) Dermatitis, unspecified: Presentation is somewhat nonspecific. DDx includes: Granulomatous dermatitis vs. Panniculitis (i.e. EN) vs. Dermal hypersensitivity reaction vs. Vasculitis (i.e. urticarial, cutaneous SHETTY, ANCA-associated vasculitis) vs. Sweet's syndrome vs. other. Discussed with patient and primary MD that skin biopsy is necessary to help with firm diagnosis. Patient is currently non-toxic and stable. Her ROS and systemic workup do not show signs of any organ involvement, and she hopes to be discharged today. Given this, we will have her scheduled in dermatology as an outpatient tomorrow at 2:15pm to perform skin biopsies for fu rther evaluation. Discussed with primary MD discharging patient on prednisone 40mg once daily for now. I will make any adjustments to her prednisone course/taper after her skin biopsy has been performed. Thank you for the consult. Call with any questions. Present on Admission?: Yes History of Present Illness Reason for Consultation: Rash Attending Physician: Sukhjinder Winter MD History of Present Illness Patient is a 67 y/o female admitted to [facility] on 08/11/2022 for rash involving the arms andlegs. She has a pertinent PMHx for EtOH abuse, stage III CKD, anemia, GERD, HTN, hyperlipidemia and depression. She also has history of recent hospitalization at [facility] from 07/17/2022 to 07/18/2022 for UGI bleed. She did receive 2 units of PRBC's at that admission and was started on pantoprazole and amlodipine. Patient states that about 1-2 weeks ago she started to develop some red areas on the lower legs. There was some associated slight swelling, but this has since resolved. She has gradually continued to develop some "red bumps" on the lower legs and forearms. She denies any involvement on the trunk. She denies any irritation in the eyes or sores in the mouth. She otherwise is feeling in her normal state of health. She denies any significant itching or pain associated with the lesions. She was not treating them prior to admission. Upon admission she was treated with IV Solu-Medrol 125 mg, and she received prednisone 40 mg today. She reports some "flattening" of a few of the lesions on the arms, but otherwise her rash is stable. She denies noticing any new areas of involvement today. She denies any history of similar eruption in the past. She denies any close contacts with a rash. No other complaints today. Allergies Allergy/AdvReac Type Severity Reaction Status Date / Time No Known Allergies Allergy Verified 08/11/22 18:03 Home Medications Medication Instructions Recorded Confirmed Type lutein 25 mg-zeaxanthin 5 mg 1 cap PO QAM 07/19/19 08/11/22 History capsule fmpwrkolxaaz-wfacedwv-vdrdho tablet 1 tab PO QAM 07/19/19 08/11/22 History albuterol sulfate 90 mcg/actuation 1 inh inhalation QID PRN shortness 07/17/22 08/11/22 Rx aerosol inhaler of breath or wheezing #8.5 grams nicotine (polacrilex) 4 mg gum 4 mg buccal Q8H PRN Nicotine 07/17/22 08/11/22 History (Nicorette) Cravings nicotine See Rx Instructions transdermal 07/17/22 08/11/22 Rx 21mg/24hr-14mg/24hr-7mg/24hr daily .COMPLEX #56 patches transderm patches,sequentl pantoprazole 40 mg tablet,delayed 40 mg PO BID #60 tabs 07/18/22 08/11/22 Rx release thiamine HCl (vitamin B1) 100 mg 100 mg PO QAM #30 tabs 07/18/22 08/11/22 Rx tablet atorvastatin 40 mg tablet 40 mg PO QAM 07/24/22 08/11/22 History ferrous sulfate 325 mg (65 mg 325 mg PO QAM 07/24/22 08/11/22 History iron) tablet fluticasone furoate 200 1 inh inhalation QAM 07/24/22 08/11/22 History mcg-vilanterol 25 mcg/dose inhalation powder (Breo Ellipta) metoprolol succinate 50 mg 50 mg PO QAM 07/24/22 08/11/22 History tablet,extended release 24 hr venlafaxine 150 mg 150 mg PO QAM 07/24/22 08/11/22 History capsule,extended release 24 hr amlodipine 5 mg tablet 5 mg PO DAILY 08/04/22 08/11/22 History Patient History Medical History (Updated 08/12/22 @ 13:01 by Mikael Rivera MD) Acid reflux Alcohol use disorder Anemia Arthritis Depression Depression with anxiety Dermatitis, unspecified Diverticulosis Dyslipidemia Hypertension Internal hemorrhoids Vitamin D deficiency Surgical History H/O hysterectomy with oophorectomy History of section x1 History of colonoscopy History of tonsillectomy History of tooth extraction S/P ORIF (open reduction internal fixation) fracture R wrist Family History Father Diabetes Myocardial infarction Sister Diabetes Grandmother Breast cancer Grandfather Myocardial infarction Mother Lung cancer Denies family history of Ovarian cancer Prostate cancer Colorectal cancer Social History Smoking Status: Current every day smoker Tobacco Type: Cigarettes packs per day: 0.5; Years Smoked: 15; Cigarettes Per Day: 1-2 per day; Second Hand Exposure: Yes; Hx Alcohol Use: Yes Alcohol type: hard liquor Alcohol type Comment: vodka Alcohol Intake Frequency: 4 or More x per/Week Alcohol Intake Frequency Comment: 4-5 drinks Hx Substance Use: No Preferred Language: Czech Communication Ability: Effective Visual Impairment: No Limitations Hearing Ability: Normal Technical Report Writer Required: No Beliefs That Will Affect Care: None marital status: Current Living Situation: Spouse Current Living Situation Comment: lives with in a mobile home current occupational status: retired Feels Safe at Home: Yes Childhood Exposure to Second-Hand Smoke: Yes Diet Comment: regular caffeine: Yes (1 red bull daily) during the past year weight has: remained stable Dental Care, Regularly: No Physical Activity Frequency: 1-2 Times per Week Physical Activity Frequency Comment: walking Seatbelt Use: always Sunscreen Use: No Assistive Devices: None Review of Systems Constitutional: no fever, no chills and no body aches Eyes: no eye pain and no worsening vision Ear, Nose, Mouth, Throat: no mouth lesions and no dysphagia Respiratory: no cough and no dyspnea Gastrointestinal: no abdominal pain, no nausea, no vomiting and no diarrhea /loose stools Genitourinary: no dysuria and no hematuria Musculoskeletal: no joint pain, no swelling and no stiffness Integumentary: as per Subjective / HPI Neurologic: no numbness and no headache(s) Hematologic / Lymphatic: no easy bleeding and no easy bruising Allergy / Immunological: no lip swelling and no tongue swelling Physical Exam Physical Exam: General Appearance:Well developed, well-nourished and in no acute distress Psych:Alert, Oriented and Appropriate Skin Type:2 Scalp/Hair:no abnormalities noted. Face:no abnormalities noted. Eyelids/Ocular Mucosa: no abnormalities noted. Lips/Teeth/Gums: no abnormalities noted. Neck: no abnormalities noted. Right Lower Extremity:+scattered erythematous, nontender, somewhat urticarial- appearing nodules on the ankle, pugh, distal anterior thigh; +PIPA on the dorsal foot Left Lower Extremity:+scattered erythematous, nontender, somewhat urticarial-a ppearing nodules on the ankle, pugh, distal anterior thigh; +PIPA on the dorsal foot Back:no abnormalities noted. Buttocks/Groin/Genitalia: not examined. Right Upper Extremity:+scattered erythematous, nontender, somewhat urticarial- appearing nodules on the forearm, mid lateral upper arm Left Upper Extremity:+scattered erythematous, nontender, somewhat urticarial- appearing nodules on the forearm, mid lateral upper arm Chest/Breast/Axillae:no abnormalities noted. Abdomen:no abnormalities noted. Nails: no abnormalities noted. Other exam notes: no head/neck lymphadenopathy; palms clear; isolated resolving erythematous papulonodule on the right plantar surface Results & Data ([facility]) Vital Signs (Past 12 Hours) Vital Signs Temp Pulse Resp BP Pulse Ox O2 Del Method 08/12/22 07:52 36.8 C 84 20 118/61 97 Room Air Laboratory Results 08/12/22 08/12/22 08/12/22 Range/Units 05:45 05:45 05:37 WBC (4.8-10.8) K/ul RBC (3.93-5.22) M/uL Hgb (12.0-16.0) g/dl Hct (34.1-44.9) % MCV (80.0-100.0) fL MCH (25.0-34.0) pg MCHC (32.0-36.0) g/dL RDW Std Deviation (36.4-46.3) fL RDW Coeff of Arlet (11.5-14.5) % Plt Count (130-400) K/uL MPV (9.4-12.3) fL Immature Gran % (Auto) % Neut % (Auto) % Lymph % (Auto) % [place] % (Auto) % Eos % (Auto) % Baso % (Auto) % Neut # (Auto) (1.4-6.5) K/uL Lymph # (Auto) (1.2-3.4) K/uL [place] # (Auto) (0.24-0.82) K/uL Eos # (Auto) (0-0.50) K/uL Baso # (Auto) (0-0.2) K/uL Immature Gran # (Auto) (0.00-0.02) K/uL ESR (0-30) mm/hr PT (9.0-12.0) Seconds INR (0.9-1.1) APTT (21.0-31.0) Seconds PTT Ratio Sodium (136-145) mmol/L Potassium (3.5-5.1) mmol/L Chloride (98-107) mmol/L Carbon Dioxide (21-32) mmol/L Anion Gap (3-11) BUN (6-23) mg/dl Creatinine (0.6-1.2) mg/dl Est Cr Clr Drug Dosing ml/min Est GFR ( Amer) ml/min Est GFR (Non-Af Amer) ml/min BUN/Creatinine Ratio (10-20) Glucose (70-99(Fasting)) mg/dl Lactate (0.4-2.0) mmol/L Calcium (8.5-10.1) mg/dl Magnesium (1.7-2.4) mg/dl Total Bilirubin (0.2-1.0) mg/dl AST (13-39) U/L ALT (7-52) U/L Alkaline Phosphatase (34-104) U/L C-React Prot High Sens Pending Total Protein (6.0-8.3) gm/dl Albumin (3.4-5.0) gm/dl Globulin (2.5-4.0) gm/dl Albumin/Globulin Ratio (0.9-2) Urine Color Yellow Urine Appearance Clear (Clear) Urine pH 5.0 (4.5-7.5) Ur Specific [place] 1.016 (1.000-1.030) Urine Protein Negative (Negative) Urine Glucose (UA) Negative (Negative) Urine Ketones Trace H (Negative) Urine Blood Negative (Negative) Urine Nitrite Negative (Negative) Urine Bilirubin Negative (Negative) Urine Urobilinogen Negative (Negative) Ur Leukocyte Esterase Negative (Negative) Nasal Screen MRSA (PCR) Negative (Negative) Anaplasma Smear SARS-CoV-2, RNA, NAAT (NEGATIVE) 08/12/22 08/12/22 08/12/22 Range/Units 05:37 05:37 05:37 WBC 7.60 (4.8-10.8) K/ul RBC 2.83 L (3.93-5.22) M/uL Hgb 7.6 L (12.0-16.0) g/dl Hct 24.3 L (34.1-44.9) % MCV 85.9 (80.0-100.0) fL MCH 26.9 (25.0-34.0) pg MCHC 31.3 L (32.0-36.0) g/dL RDW Std Deviation 47.3 H (36.4-46.3) fL RDW Coeff of Arlet 15.0 H (11.5-14.5) % Plt Count 471 H (130-400) K/uL MPV 11.5 (9.4-12.3) fL Immature Gran % (Auto) 1.3 % Neut % (Auto) 87.6 % Lymph % (Auto) 9.5 % [place] % (Auto) 1.3 % Eos % (Auto) 0.0 % Baso % (Auto) 0.3 % Neut # (Auto) 6.66 H (1.4-6.5) K/uL Lymph # (Auto) 0.72 L (1.2-3.4) K/uL [place] # (Auto) 0.10 L (0.24-0.82) K/uL Eos # (Auto) 0.00 (0-0.50) K/uL Baso # (Auto) 0.02 (0-0.2) K/uL Immature Gran # (Auto) 0.10 H (0.00-0.02) K/uL ESR 71 H (0-30) mm/hr PT (9.0-12.0) Seconds INR (0.9-1.1) APTT (21.0-31.0) Seconds PTT Ratio Sodium 135 L (136-145) mmol/L Potassium 4.2 (3.5-5.1) mmol/L Chloride 106 (98-107) mmol/L Carbon Dioxide 18 L (21-32) mmol/L Anion Gap 11 (3-11) BUN 30 H (6-23) mg/dl Creatinine 1.57 H (0.6-1.2) mg/dl Est Cr Clr Drug Dosing 27.0 ml/min Est GFR ( Amer) 38.6 ml/min Est GFR (Non-Af Amer) 33.3 ml/min BUN/Creatinine Ratio 19.1 (10-20) Glucose 188 H (70-99(Fasting)) mg/dl Lactate (0.4-2.0) mmol/L Calcium 9.1 (8.5-10.1) mg/dl Magnesium 1.3 L (1.7-2.4) mg/dl Total Bilirubin 0.3 (0.2-1.0) mg/dl AST 27 (13-39) U/L ALT 23 (7-52) U/L Alkaline Phosphatase 57 (34-104) U/L C-React Prot High Sens Total Protein 6.5 (6.0-8.3) gm/dl Albumin 3.0 L (3.4-5.0) gm/dl Globulin 3.5 (2.5-4.0) gm/dl Albumin/Globulin Ratio 0.9 (0.9-2) Urine Color Urine Appearance (Clear) Urine pH (4.5-7.5) Ur Specific [place] (1.000-1.030) Urine Protein (Negative) Urine Glucose (UA) (Negative) Urine Ketones (Negative) Urine Blood (Negative) Urine Nitrite (Negative) Urine Bilirubin (Negative) Urine Urobilinogen (Negative) Ur Leukocyte Esterase (Negative) Nasal Screen MRSA (PCR) (Negative) Anaplasma Smear SARS-CoV-2, RNA, NAAT (NEGATIVE) 08/11/22 08/11/22 08/11/22 Range/Units 20:22 19:20 16:40 WBC (4.8-10.8) K/ul RBC (3.93-5.22) M/uL Hgb (12.0-16.0) g/dl Hct (34.1-44.9) % MCV (80.0-100.0) fL MCH (25.0-34.0) pg MCHC (32.0-36.0) g/dL RDW Std Deviation (36.4-46.3) fL RDW Coeff of Arlet (11.5-14.5) % Plt Count (130-400) K/uL MPV (9.4-12.3) fL Immature Gran % (Auto) % Neut % (Auto) % Lymph % (Auto) % [place] % (Auto) % Eos % (Auto) % Baso % (Auto) % Neut # (Auto) (1.4-6.5) K/uL Lymph # (Auto) (1.2-3.4) K/uL [place] # (Auto) (0.24-0.82) K/uL Eos # (Auto) (0-0.50) K/uL Baso # (Auto) (0-0.2) K/uL Immature Gran # (Auto) (0.00-0.02) K/uL ESR (0-30) mm/hr PT 11.4 (9.0-12.0) Seconds INR 1.1 (0.9-1.1) APTT 29.6 (21.0-31.0) Seconds PTT Ratio 1.1 Sodium (136-145) mmol/L Potassium (3.5-5.1) mmol/L Chloride (98-107) mmol/L Carbon Dioxide (21-32) mmol/L Anion Gap (3-11) BUN (6-23) mg/dl Creatinine (0.6-1.2) mg/dl Est Cr Clr Drug Dosing ml/min Est GFR ( Amer) ml/min Est GFR (Non-Af Amer) ml/min BUN/Creatinine Ratio (10-20) Glucose (70-99(Fasting)) mg/dl Lactate 1.2 (0.4-2.0) mmol/L Calcium (8.5-10.1) mg/dl Magnesium (1.7-2.4) mg/dl Total Bilirubin (0.2-1.0) mg/dl AST (13-39) U/L ALT (7-52) U/L Alkaline Phosphatase (34-104) U/L C-React Prot High Sens Total Protein (6.0-8.3) gm/dl Albumin (3.4-5.0) gm/dl Globulin (2.5-4.0) gm/dl Albumin/Globulin Ratio (0.9-2) Urine Color Urine Appearance (Clear) Urine pH (4.5-7.5) Ur Specific [place] (1.000-1.030) Urine Protein (Negative) Urine Glucose (UA) (Negative) Urine Ketones (Negative) Urine Blood (Negative) Urine Nitrite (Negative) Urine Bilirubin (Negative) Urine Urobilinogen (Negative) Ur Leukocyte Esterase (Negative) Nasal Screen MRSA (PCR) (Negative) Anaplasma Smear SARS-CoV-2, RNA, NAAT NEGATIVE (NEGATIVE) 08/11/22 08/11/22 08/11/22 Range/Units 15:05 15:05 15:05 WBC 14.45 H (4.8-10.8) K/ul RBC 3.24 L (3.93-5.22) M/uL Hgb 8.8 L (12.0-16.0) g/dl Hct 28.2 L (34.1-44.9) % MCV 87.0 (80.0-100.0) fL MCH 27.2 (25.0-34.0) pg MCHC 31.2 L (32.0-36.0) g/dL RDW Std Deviation 48.3 H (36.4-46.3) fL RDW Coeff of Arlet 15.2 H (11.5-14.5) % Plt Count 561 H (130-400) K/uL MPV 11.9 (9.4-12.3) fL Immature Gran % (Auto) 1.1 % Neut % (Auto) 78.9 % Lymph % (Auto) 10.7 % [place] % (Auto) 7.5 % Eos % (Auto) 1.2 % Baso % (Auto) 0.6 % Neut # (Auto) 11.39 H (1.4-6.5) K/uL Lymph # (Auto) 1.55 (1.2-3.4) K/uL [place] # (Auto) 1.09 H (0.24-0.82) K/uL Eos # (Auto) 0.18 (0-0.50) K/uL Baso # (Auto) 0.08 (0-0.2) K/uL Immature Gran # (Auto) 0.16 H (0.00-0.02) K/uL ESR (0-30) mm/hr PT (9.0-12.0) Seconds INR (0.9-1.1) APTT (21.0-31.0) Seconds PTT Ratio Sodium 132 L (136-145) mmol/L Potassium 4.3 (3.5-5.1) mmol/L Chloride 97 L (98-107) mmol/L Carbon Dioxide 20 L (21-32) mmol/L Anion Gap 15 H (3-11) BUN 28 H (6-23) mg/dl Creatinine 1.79 H (0.6-1.2) mg/dl Est Cr Clr Drug Dosing 23.4 ml/min Est GFR ( Amer) 32.9 ml/min Est GFR (Non-Af Amer) 28.4 ml/min BUN/Creatinine Ratio 15.6 (10-20) Glucose 96 (70-99(Fasting)) mg/dl Lactate (0.4-2.0) mmol/L Calcium 10.9 H (8.5-10.1) mg/dl Magnesium (1.7-2.4) mg/dl Total Bilirubin 0.5 (0.2-1.0) mg/dl AST 28 (13-39) U/L ALT 26 (7-52) U/L Alkaline Phosphatase 70 (34-104) U/L C-React Prot High Sens Total Protein 7.7 (6.0-8.3) gm/dl Albumin 3.6 (3.4-5.0) gm/dl Globulin 4.1 H (2.5-4.0) gm/dl Albumin/Globulin Ratio 0.9 (0.9-2) Urine Color Urine Appearance (Clear) Urine pH (4.5-7.5) Ur Specific [place] (1.000-1.030) Urine Protein (Negative) Urine Glucose (UA) (Negative) Urine Ketones (Negative) Urine Blood (Negative) Urine Nitrite (Negative) Urine Bilirubin (Negative) Urine Urobilinogen (Negative) Ur Leukocyte Esterase (Negative) Nasal Screen MRSA (PCR) (Negative) Anaplasma Smear See Comment SARS-CoV-2, RNA, NAAT (NEGATIVE) Diagnostic Findings CXR 08/11/2022: No acute process Medications Administered MAR reviewed in [facility] PG Care Time/CCT Total # of Minutes Spent Total Time Spent with Patient: Total time spent is greater than 50% in coordination of care (as documented) at patient's floor/unit and/or counseling patient: Coding Level of Care Code INT OBSERVATION CARE 50M LVL 2 Diagnoses Dermatitis, unspecified L30.9
--- NOTE | 2022-08-12 14:53 | Discharge Summary ---
Date of Service August 12, 2022 Admission HPI Per Admitting Provider 67 yo F with PMH previous [facility] admission in 06/2022, alcohol use disorder, CKD3, anemia, tobacco use disorder, HTN, GERD, HLD, depression presenting with acute rash. Pt notes onset of rash 1 week prior- all four limbs from wrist to shoulder and ankle to thigh. Rash features multiple poorly demarcated flat, red ovoid lesions. Rash is not pruritic, warm or painful though pt reports minor discomfort on palpation. Rash did not evolve over past week, though pt has experienced about 7 lbs unintentional weight loss over past few weeks and 1 week of poor appetite and fatigue since rash onset. Also notes development of mild swelling of ankles b/l over past 2 days. Denies any other systemic symptoms, no fever, chills, shortness of breath, headache. Pt denies any new environmental or dietary exposures prior to rash onset. She did start new medications recently- pantoprazole on 07/18 and amlodipine on 07/24. Did have dose increase of her Effexor 75 mg to 150 mg on 07/24. Went to her PCP for this rash on 08/04 and multiple rheumatologic/immune labs ordered. Pt arrived to ED hemodynamically stable though with temperature 38.3 C. Admission labs WBC 14.5, Hgb 8.8, Plts 561, Na 132, Cr 1.79, AG 15. Received NSS, administered vancomycin/cefepime for empiric therapy. BCx, UCx pending. EKG with sinus tachycardia and PACs, no acute ST change. On evaluation, pt reports feeling well without acute complaint. Denies any pain, notes rash has not changed, swelling unchanged as well. Denies chest pain, fever/chills, shortness of breath. Principal Diagnosis Rash NOS Discharge Exam Constitutional Gen: No acute distress Skin: Light pink rash on arms and legs. Mildly raise. Not itchy and not tender to palpation. Discharge Data Allergies Allergy/AdvReac Type Severity Reaction Status Date / Time No Known Allergies Allergy Verified 08/11/22 18:03 Consultations 08/11/22 18:39 ED Decision to Admit Stat 08/11/22 19:41 Consult Dermatology Routine Ordered Studies 08/11/22 16:34 US venous doppler LE RT Stat Hospital Course (1) Rash: -Unclear etiology, rash does not appear as classic vasculitis though clinical history, symmetric nature, 1 week without clinical evolution, previous history of elevated rheumatologic markers suggests vasculitis as most likely cause -Acute infectious etiologies less likely, though endocarditis remains on differential although lesion location and type are not typical of endocarditis rash 2/2 septic emboli -TTE ordered for AM -MRSA nares swab ordered -08/06 outpatient labs- ESR 84, CRP 16, RF 65, Lyme negative, multiple labs still pending -CXR, lactate, BCx, UCx pending -IV Solumedrol 125 mg given on admission, prednisone 40 mg daily ordered to begin in AM -Discontinued antibiotics due to low suspicion for acute bacterial infection at present -Dermatology consulted - Plan for biopsy tomorrow as outpatient. Discharge on prednisone x 1 week with derm to adjust as needed. (2) Heart murmur: -New systolic murmur noted on exam -Echocardiogram ordered for AM to r/o endocarditis as above -> Will be discharged if echo is normal. Presently pending. (3) Anemia: -Hgb 8.8 on admission, baseline appears ~9 -Known history of iron deficiency anemia at baseline and previous GI bleeds, history of blood transfusions -Continue ferrous sulfate -Trend CBC -> Mildly lower today. No bleeding. Patient asymptomatic and wants to go home. (4) Leukocytosis: -WBC 14.5 on admission -Vancomycin/cefepime given in ED -Discontinued antibiotics due to low suspicion for bacterial infection as above -Trend CBC - Normalized. (5) Depression with anxiety: -Continue Effexor 150 mg daily (6) Hypertension: -Continue amlodipine 5 mg daily -Continue metoprolol succinate 50 mg daily (7) Alcohol use disorder: -Last drink at 8:00 PM on 08/10 -No concern for withdrawal at present (8) Tobacco use disorder: -Continue nicotine patch/gum (9) Acid reflux: -Protonix 40 mg PO BID switched to IV Protonix 40 mg daily while on steroids (10) Dyslipidemia: -Continue atorvastatin 40 mg daily (11) CKD (chronic kidney disease): -Cr 1.79 on admission, at baseline per 08/06 nephrology note -Trend BMP Plan FENGI: Regular Code status: Full DVT ppx: SCDs Isolation: None Dispo: Medical/surgical Total Time Total Time Spent Total Time Spent (In Minutes): 35 Discharge Plan Discharge Items Patient Disposition: Home - Self-Care Reason For Visit: RASH, FATIGUE Discharge Diagnosis: Rash Activity: Resume your previous activity Non-emergency contact: Primary Care Provider and Specialist Call non-emergency contact if: your symptoms worsen Follow-up/Referrals: Sandy Shea DO [Primary Care Provider] - Mikael Rivera MD [Physician] - 08/13/22 2:00 pm (Please go to Dr. Rivera's office tomorrow for a biopsy of your rash.) Diet: Regular Addtl Attending Provider Instructions: Ms. George, We are not sure why you are having this rash, but luckily, we do not think it is because of an infection in your blood stream. Please go to Dr. Rivera's office tomorrow for a biopsy of your rash. Please take two tablet of the prednisone (40 mg) every day until gone with the next dose being tomorrow. Pending Studies at Discharge: No Stand-Alone Forms: My Repeatit, Smoking Cessation Medications and DC Order Prescriptions: New prednisone 20 mg Tablet 40 mg PO DAILY Qty: 14 0RF Continued nicotine (polacrilex) [Nicorette] 4 mg gum 4 mg buccal Q8H PRN (Reason: Nicotine Cravings) albuterol sulfate 90 mcg/actuation HFA aerosol inhaler 1 inh inhalation QID PRN (Reason: shortness of breath or wheezing) Qty: 8.5 0RF nicotine 21-14-7 mg/24 hr patch, TD daily, sequential See Rx Instructions transdermal .COMPLEX Qty: 56 0RF Rx Instructions: apply 1-21 mg NICOTINE PATCH daily for 28 days; follow with 1-14 mg PATCH daily for 14 days, then 1-7mg PATCH daily for 14 days transdermal amlodipine 5 mg tablet 5 mg PO DAILY lutein-zeaxanthin 25-5 mg capsule 1 cap PO QAM nzenflqxbebs-rushchzj-ygonpa tablet 1 tab PO QAM thiamine HCl (vitamin B1) 100 mg Tablet 100 mg PO QAM Qty: 30 0RF pantoprazole 40 mg tablet,delayed release (DR/EC) 40 mg PO BID Qty: 60 0RF atorvastatin 40 mg tablet 40 mg PO QAM metoprolol succinate 50 mg tablet extended release 24 hr 50 mg PO QAM venlafaxine 150 mg capsule,extended release 24hr 150 mg PO QAM Rx Instructions: rx changed dose ferrous sulfate 325 mg (65 mg iron) tablet 325 mg PO QAM fluticasone furoate-vilanterol [Breo Ellipta] 200-25 mcg/dose blister with device 1 inh inhalation QAM Discharge Orders: Discharge Order (Routine); Ordered 08/12/22 Ordered By: Sukhjinder Winter Admission Data Admit Date/Time: 08/11/22 19:41 Attending Provider: Sukhjinder Winter Admit Provider: Jyoti Willis Primary Care Provider: Sandy Shea Other Providers: Mikael Rivera ; Jean Balbuena Coding Level of Care Code 58661 OBS Care - Discharge Diagnoses Rash R21 Heart murmur R01.1 Anemia D64.9 Leukocytosis D72.829 Depression with anxiety F41.8 Hypertension I10 Alcohol use disorder Tobacco use disorder F17.200 Acid reflux K21.9 Dyslipidemia E78.5 CKD (chronic kidney disease) N18.9
--- NOTE | 2022-08-12 15:36 | XCELERA ---
[id number]
--- NOTE | 2022-08-13 04:55 | Electrocardiogram Report ---
Test Reason : Blood Pressure : / mmHG Vent. Rate : 106 BPM Atrial Rate : 106 BPM P-R Int : 128 ms QRS Dur : 074 ms QT Int : 350 ms P-R-T Axes : 063 010 032 degrees QTc Int : 464 ms Poor data quality, interpretation may be adversely affected Sinus tachycardia with Premature atrial complexes Possible Left atrial enlargement Septal infarct , age undetermined Nonspecific ST abnormality Abnormal ECG When compared with ECG of 17-JUL-2022 17:14, Premature atrial complexes are now Present Confirmed by Jun Weiss ([id number]) on 08/13/2022 4:55:18 AM Referred By: Confirmed By:Jun Weiss
[2022-08-13] MEDS ORDERED: NICOTINE 21 MG/24 HR TDSY TD SCH (12:15)
[2022-08-13 13:36] LABS: C-Reactive Protein High Sens. >10.0 mg/L
== END 2022-08-12 16:00 | disposition home or self-care (01) ==
LOC: ED 14:30 → 3N 14:30 → SUATTDRO 19:41 → 3N 22:05
DX: Z79.899 Other long term (current) drug therapy; I10 Essential (primary) hypertension; Z79.1 Long term (current) use of non-steroidal anti-inflammatories (NSAID); N18.30 Chronic kidney disease, stage 3 unspecified; F10.90 Alcohol use, unspecified, uncomplicated; L30.9 Dermatitis, unspecified; F32.A Depression, unspecified; I12.9 Hypertensive chronic kidney disease with stage 1 through stage 4 chronic kidney disease, or unspecified chronic kidney disease; D50.9 Iron deficiency anemia, unspecified; D64.9 Anemia, unspecified; F41.9 Anxiety disorder, unspecified; F17.210 Nicotine dependence, cigarettes, uncomplicated; R01.1 Cardiac murmur, unspecified; N17.9 Acute kidney failure, unspecified; E78.5 Hyperlipidemia, unspecified; E55.9 Vitamin D deficiency, unspecified